=== PATIENT | male | born 1955 | race Caucasian/White ===

== ENCOUNTER 2020-05-17 16:04 | Emergency (ER) | payer MEDICARE ==
[2020-05-17 16:20] VITALS: PULSE 75
[2020-05-17 17:35] LABS: Basophils # (A) 0.1 k/uL (0-0.2); Basophils % (A) 1 %; Eosinophils # (A) 0.2 k/uL (0-0.7); Eosinophils % (A) 2 %; HCT 46.5 % (39.0-53.0); HGB 15.2 gm/dL (13.0-17.5); Lymphocytes % (A) 13 %; MCH 32.7 pg (25.0-35.0); MCHC 32.8 g/dL (31.0-37.0); MCV 99.8 fL (80.0-100.0); Mean Platelet Volume 7.5; Monocytes # (A) 0.6 k/uL (0-1.0); Monocytes % (A) 8 %; Neutrophils # (A) 5.6 k/uL (1.3-7.7); Neutrophils % (A) 73 %; Platelet Count 323 k/uL (150-450); RBC 4.66 m/uL (4.30-5.90); RDW 13.7 % (11.5-15.5); WBC 7.7 k/uL (3.8-10.6)
[2020-05-17 17:44] LABS: ALT 23 U/L (4-49); AST 42 U/L (17-59); African American GFR (CKD) >90 (>60 ml/min/1.73 sqM); Albumin 3.9 g/dL (3.5-5.0); Alkaline Phosphatase 42 U/L (38-126); Amylase 78 U/L (30-110); Anion Gap 8 mmol/L; Blood Urea Nitrogen 11 mg/dL (9-20); Calcium 9.4 mg/dL (8.4-10.2); Carbon Dioxide 24 mmol/L (22-30); Chloride 102 mmol/L (98-107); Glucose 96 mg/dL (74-99); Non-African American GFR(CKD) >90 (>60 ml/min/1.73 sqM); Potassium 3.8 mmol/L (3.5-5.1); Sodium 134 mmol/L (137-145); Total Bilirubin 0.5 mg/dL (0.2-1.3)
--- NOTE | 2020-05-17 18:16 | CT ---
EXAMINATION TYPE: CT abdomen pelvis w con DATE OF EXAM: 05/17/2020 COMPARISON: 06/10/2011 HISTORY: Diarrhea x9 days CT DLP: 1151.1 mGycm Automated exposure control for dose reduction was used. CONTRAST: Performed with IV Contrast, patient injected with 100 mL of Isovue 300. Lung bases are clear of consolidation. There is no pleural effusion. Heart size is normal. There is n o pericardial effusion. Liver spleen pancreas stomach appear normal. There are clips from cholecystec raul. Bile ducts are not dilated. There is no adrenal mass. Kidneys show satisfactory contrast opacification. There is no hydronephrosi s. Ureters are not dilated. There is no inguinal hernia. Bladder is almost empty. There is no evidenc e of a pelvic mass. There are multiple sigmoid diverticula. There is some mild fat stranding posterio r to the proximal sigmoid colon. There are numerous diverticula throughout the colon. The appendix is posterior and appears normal. Small bowel appears normal. There is no evidence of a bowel obstructio n. There is no ascites or free air. Lumbar vertebra have normal alignment. There is narrowing of disc spaces at L3-4 L4-5 with spurring a nd sclerosis. There is no compression fracture. The bony pelvis is intact. IMPRESSION: There is extensive colonic diverticulosis. There is evidence of mild sigmoid diverticulitis. This is a change compared to old exam. No abscess. Spondylotic changes in the lower lumbar spine.
[2020-05-17 18:25] LABS: Appearance,Urine Clear (Clear); Bilirubin,Urine Negative (Negative); Blood,Urine Negative (Negative); Color,Urine Yellow; Glucose,Urine (UA) Negative (Negative); Ketones,Urine Negative (Negative); Leukocyte Esterase,Urine Negative (Negative); Nitrite,Urine Negative (Negative); Protein,Urine Negative (Negative); Urobilinogen,Urine <2.0 mg/dL (<2.0)
[2020-05-17] MEDS ORDERED: AMOXIC-POT CLAV 875MG STARTER PACK 2 TAB BTL PO STA (18:33)
--- NOTE | 2020-05-17 18:34 | ED ---
Abdominal Pain HPI <Evan Leach - Last Filed: 05/17/20 18:37> - General Source: patient Mode of arrival: ambulatory Limitations: no limitations <Lesli Bingham - Last Filed: 05/17/20 19:08> - General Chief Complaint: Abdominal Pain Stated Complaint: diarrhea/poss obstruction Time Seen by Provider: 05/17/20 16:22 - History of Present Illness Initial Comments: 64-year-old male presented for chief complaint evaluation of crampy left lower quadrant abdominal pain ongoing since the day after Father's Day. Patient states the past 2 weeks he has had on-and-off left lower quadrant abdominal pain crampy in nature no severe stabbing pain he states that it has been associated with diarrhea. Patient states he's been tolerating oral intake denies any vomiting states he has had had some nausea. Patient denies fevers. Patient denies any blood in the stools or hematemesis. Patient has no additional complaints denies any chest pain shortness of breath (Lesli Bingham) - Related Data Home Medications Medication Instructions Recorded Confirmed ALPRAZolam [Xanax] 1 mg PO BID PRN 05/17/20 05/17/20 Diphenoxylate HCl/Atropine 1 tab PO QID PRN 05/17/20 05/17/20 [Lomotil 2.5-0.025 mg Tablet] Fenofibrate 160 mg PO HS 05/17/20 05/17/20 Omeprazole 20 mg PO Q48H 05/17/20 05/17/20 Sertraline [Zoloft] 100 mg PO HS 05/17/20 05/17/20 traZODone HCL 50 mg PO HS 05/17/20 05/17/20 Previous Rx's Medication Instructions Recorded Amoxic-Pot Clav 875-125Mg 1 tab PO Q12HR 10 Days #20 tab 05/17/20 [Augmentin 875-125] Allergies Allergy/AdvReac Type Severity Reaction Status Date / Time No Known Allergies Allergy Verified 05/17/20 17:37 Review of Systems ROS Other: All systems not noted in ROS Statement are negative. <Evan Leach - Last Filed: 05/17/20 18:37> ROS Other: All systems not noted in ROS Statement are negative. <Lesli Bingham - Last Filed: 05/17/20 19:08> ROS Statement: Those systems with pertinent positive or pertinent negative responses have been documented in the HPI. Past Medical History Past Medical History: Hyperlipidemia History of Any Multi-Drug Resistant Organisms: None Reported Additional Past Surgical History / Comment(s): RT knee surgery Past Psychological History: No Psychological Hx Reported Smoking Status: Never smoker Past Alcohol Use History: None Reported Past Drug Use History: None Reported <Lesli Bingham - Last Filed: 05/17/20 19:08> General Exam Limitations: no limitations <Lesli Bingham - Last Filed: 05/17/20 19:08> - General Exam Comments Initial Comments: General: The patient is awake and alert, in no distress Eye: Pupils are equal, round and reactive to light, extra-ocular movements are intact. No nystagmus. There is normal conjunctiva bilaterally. No signs of icterus. Ears, nose, mouth and throat: There are moist mucous membranes and no oral lesions. Neck: The neck is supple, there is no tenderness or JVD. Cardiovascular: There is a regular rate and rhythm. No murmur, rub or gallop is appreciated. Respiratory: Lungs are clear to auscultation, respirations are non-labored, breath sounds are equal. No wheezes, stridor, rales, or rhonchi. Gastrointestinal: Soft, non-distended, mild-moder LLQ pain to palpation of the abdomen without masses or organomegaly noted. There is no rebound or guarding present. Musculoskeletal: Normal ROM, no tenderness. Strength 5/5. Sensation intact. Pulses equal bilaterally 2+. Neurological: A&O x 3. CN II-XII intact, There are no obvious motor or sensory deficits. Coordination appears grossly intact. Speech is normal. Skin: Skin is warm and dry and no rashes or lesions are noted. Psychiatric: Cooperative, appropriate mood & affect, normal judgment. (Lesli Bingham) Course <Evan Leach - Last Filed: 05/17/20 18:37> Vital Signs 05/17/20 16:14 Temperature 98.2 F Pulse Rate 75 Respiratory 18 Rate Blood Pressure 132/82 O2 Sat by Pulse 96 Oximetry - Reevaluation(s) Reevaluation #1: 05/17/20 18:37 PA supervision: I proceeded [id number] evaluation the patient. He did present with complaints of lower abdominal pain he does have an exam and findings consistent with diverticulitis. It is a mild case and is amenable to outpatient treatment. After discussion with the patient and his he is agreed to be discharged with attempts at outpatient therapy. Return parameters were dis cussed. (Evan Leach) Medical Decision Making - Lab Data Result diagrams: 05/17/20 17:26 05/17/20 17:26 <Evan Leach - Last Filed: 05/17/20 18:37> - Lab Data Result diagrams: 05/17/20 17:26 05/17/20 17:26 <Lesli Bingham - Last Filed: 05/17/20 19:08> - Medical Decision Making 34-year-old male presenting for left lower quadrant abdominal pain ongoing for the past 2 weeks. Sent from primary care provider to rule out obstruction although patient is passing stool per rectum. CT concerning for extensive diverticulosis with sigmoid diverticulitis. This is consistent physical exa mination. Patient was initiated on Augmentin there is no signs of severe disease or abscess. Patient having oral intake and I felt this time history of for discharge with outpatient GI and primary care follow-up consultations of diverticulitis and diverticular diet were discussed the patient verbalizes understanding his aware of this her temperature parents for increasing or sudden onset of new pain or development of fevers. Patient case discussed with Eliceo Leach who evaluated patient he is agreeable to care plan and discharge. (Lesli Bingham) - Lab Data Lab Results 05/17/20 05/17/20 05/17/20 Range/Units 17:26 17:26 18:21 WBC 7.7 (3.8-10.6) k/uL RBC 4.66 (4.30-5.90) m/uL Hgb 15.2 (13.0-17.5) gm/dL Hct 46.5 (39.0-53.0) % MCV 99.8 (80.0-100.0) fL MCH 32.7 (25.0-35.0) pg MCHC 32.8 (31.0-37.0) g/dL RDW 13.7 (11.5-15.5) % Plt Count 323 (150-450) k/uL Neutrophils % 73 % Lymphocytes % 13 % Monocytes % 8 % Eosinophils % 2 % Basophils % 1 % Neutrophils # 5.6 (1.3-7.7) k/uL Lymphocytes # 1.0 (1.0-4.8) k/uL Monocytes # 0.6 (0-1.0) k/uL Eosinophils # 0.2 (0-0.7) k/uL Basophils # 0.1 (0-0.2) k/uL Sodium 134 L (137-145) mmol/L Potassium 3.8 (3.5-5.1) mmol/L Chloride 102 (98-107) mmol/L Carbon Dioxide 24 (22-30) mmol/L Anion Gap 8 mmol/L BUN 11 (9-20) mg/dL Creatinine 0.77 (0.66-1.25) mg/dL Est GFR (CKD-EPI)AfAm >90 (>60 ml/min/1.73 sqM) Est GFR (CKD-EPI)NonAf >90 (>60 ml/min/1.73 sqM) Glucose 96 (74-99) mg/dL Calcium 9.4 (8.4-10.2) mg/dL Total Bilirubin 0.5 (0.2-1.3) mg/dL AST 42 (17-59) U/L ALT 23 (4-49) U/L Alkaline Phosphatase 42 (38-126) U/L Total Protein 7.0 (6.3-8.2) g/dL Albumin 3.9 (3.5-5.0) g/dL Amylase 78 (30-110) U/L Lipase 131 (23-300) U/L Urine Color Yellow Urine Appearance Clear (Clear) Urine pH 6.0 (5.0-8.0) Ur Specific [place] 1.010 (1.001-1.035) Urine Protein Negative (Negative) Urine Glucose (UA) Negative (Negative) Urine Ketones Negative (Negative) Urine Blood Negative (Negative) Urine Nitrite Negative (Negative) Urine Bilirubin Negative (Negative) Urine Urobilinogen <2.0 (<2.0) mg/dL Ur Leukocyte Esterase Negative (Negative) Disposition <Evan Leach - Last Filed: 05/17/20 18:37> Is patient prescribed a controlled substance at d/c from ED?: No Time of Disposition: 18:34 <Lesli Bingham - Last Filed: 05/17/20 19:08> Clinical Impression: Diverticulitis, Diarrhea, Abdominal cramping Disposition: HOME SELF-CARE Condition: Good Instructions (If sedation given, give patient instructions): Diverticulitis (ED), Diverticulitis Diet (ED) Additional Instructions: Please use medication as discussed. Please follow-up with family doctor in the next 2 days, recommend outpatient GI follow-up for colonoscopy in next month once infection cleared. Please return to emergency room if the symptoms increase or worsen or for any other concerns. Prescriptions: Amoxic-Pot Clav 875-125Mg [Augmentin 875-125] 1 tab PO Q12HR 10 Days #20 tab Referrals: Raudel Vaca III, MD [Primary Care Provider] - 1-2 days Cassandra Felton MD [STAFF PHYSICIAN] - 1-2 days
[2020-05-17 19:10] VITALS: BP 129/76; RESP 17; TEMP 98.3
== END 2020-05-17 19:09 | disposition home or self-care (01) ==
LOC: EC 16:04
DX: K57.32 Diverticulitis of large intestine without perforation or abscess without bleeding (principal); Z79.899 Other long term (current) drug therapy
CPT/HCPCS: 36415; 80053; 82150; 83690; 85025; 81003; 74177; 99284; Q9967

== ENCOUNTER → 2020-08-08 | Day surgery (SDC) | payer MEDICARE ==
[2020-08-03 12:08] VITALS: BMI 29.5
[~2020-08-08] MED LIST: LACTATED RINGERS 1,000 ML IV SCH; LIDOCAINE 1% INJ 10MG/ML (20 ML MDV) ONE; PROPOFOL 10 MG/ML 20 ML VIAL IV ONE
[2020-08-08 09:01] VITALS: TEMP 97.2
--- NOTE | 2020-08-08 09:15 | P.GSHP ---
History of Present Illness H&P Date: 08/08/20 Chief Complaint: Colon cancer screening Patient here today for colonoscopy. Last colonoscopy 10 years or so ago. Previous colonoscopies normal. Complaints of chronic diarrhea says he'll have 3-5 bowel moments per day. No rectal bleeding. No history of polyps. No family history of colon cancer. Past Medical History Past Medical History: GERD/Reflux, Hyperlipidemia Additional Past Medical History / Comment(s): hx of colitis, having frequent dark stools, History of Any Multi-Drug Resistant Organisms: None Reported Past Surgical History: Joint Replacement, Orthopedic Surgery Additional Past Surgical History / Comment(s): RT knee 6 arthroscopic sx, ACL repair, and 3 rt knee replacements Past Anesthesia/Blood Transfusion Reactions: No Reported Reaction Smoking Status: Former smoker - Past Family History Mother Family Medical History: No Reported History Medications and Allergies Home Medications Medication Instructions Recorded Confirmed Type ALPRAZolam [Xanax] 0.5 mg PO BID PRN 05/17/20 08/08/20 History Fenofibrate 160 mg PO HS 05/17/20 08/03/20 History Omeprazole 20 mg PO Q48H 05/17/20 08/03/20 History Sertraline [Zoloft] 100 mg PO HS 05/17/20 08/03/20 History traZODone HCL 50 mg PO HS 05/17/20 08/03/20 History Allergies Allergy/AdvReac Type Severity Reaction Status Date / Time No Known Allergies Allergy Verified 08/03/20 12:01 Surgical - Exam Vital Signs Temp Pulse Resp BP Pulse Ox 97.2 F L 94 17 175/92 97 08/08/20 08:59 08/08/20 08:59 08/08/20 08:59 08/08/20 08:59 08/08/20 08:59 Physical exam: General: Well-developed, well-nourished HEENT: Normocephalic, sclerae nonicteric Abdomen: Nontender, nondistended Extremities: No edema Neuro: Alert and oriented Assessment and Plan (1) Colon cancer screening Narrative/Plan: Will proceed with colonoscopy at this time Current Visit: Yes Status: Acute Code(s): Z12.11 - ENCOUNTER FOR SCREENING FOR MALIGNANT NEOPLASM OF COLON SNOMED Code(s): 739894999
--- NOTE | 2020-08-08 09:31 | P.PCN ---
Date of Procedure: 08/08/20 Procedure(s) Performed: PREOPERATIVE DIAGNOSIS: Colon cancer screening POSTOPERATIVE DIAGNOSIS: Transverse colon polyp, mild left-sided colitis, diverticulosis PROCEDURE: Colonoscopy with snare polypectomy and biopsy ANESTHESIA: MAC SURGEON: Rhett Wellington M.D. SPECIMENS: Random left colon, transverse colon polyp ENDOSCOPIC PROCEDURE: The patient was placed on the endoscopy table in the left decubitus position. The Olympus colonoscope was inserted into the anus and passed under direct visualization to the base of the cecum. The appendiceal orifice was visualized. From that point the scope was slowly withdrawn inspecting all surfaces carefully. There were no neoplastic inflammatory or polypoid lesions throughout the cecum and ascending colon. In the transverse colon a small polyp was seen and removed using the snare with cautery technique. The remainder of the transverse descending sigmoid and rectum are free of any neoplastic or polypoid lesions. The patient did have mild inflammatory changes throughout the left side of the colon. Random biopsies of the left sided colitis were taken. The erythema was spotty and mild in nature, no ulcerations were seen, no bleeding was seen. Patient had extensive diverticulosis throughout the colon. Digital rectal examination was normal. The patient was taken to the recovery room in stable condition per anesthesia guidelines. RECOMMENDATIONS: Await biopsy results. Resume diet
[2020-08-08 09:58] VITALS: BP 143/90; PULSE 66; RESP 16
== END ==
LOC: ORWHC2ENDO 08:34
PROVIDERS: ATTEND Surgery
DX: K51.50 Left sided colitis without complications (principal); K63.5 Polyp of colon; K57.30 Diverticulosis of large intestine without perforation or abscess without bleeding; K21.9 Gastro-esophageal reflux disease without esophagitis; E78.5 Hyperlipidemia, unspecified; Z87.19 Personal history of other diseases of the digestive system; Z96.651 Presence of right artificial knee joint; Z98.890 Other specified postprocedural states; Z87.891 Personal history of nicotine dependence; Z79.899 Other long term (current) drug therapy; Z88.1 Allergy status to other antibiotic agents
CPT/HCPCS: 88305; 45385; J2001; J2704

== ENCOUNTER → 2020-12-15 | Outpatient (CLI) | payer MEDICARE | END | disposition home or self-care (01) | LOC: LABWHC1 16:59 | PROVIDERS: ATTEND Family Medicine | DX: J06.9 Acute upper respiratory infection, unspecified (principal); R05 Cough | CPT/HCPCS: U0003; C9803 ==

== ENCOUNTER → 2021-07-16 | Outpatient (CLI) | payer MEDICARE ==
--- NOTE | 2021-07-16 12:49 | ECHOF ---
Referral Reason:I34.0 Nonrheumatic mitral (valve) insufficiency MEASUREMENTS -------- HEIGHT: 177.8 cm WEIGHT: 90.7 kg BP: IVSd: 1.7 cm (0.6 - 1.1) LVIDd: 3.8 cm (3.9 - 5.3) LVPWd: 1.8 cm (0.6 - 1.1) EDV(Teich): 64 ml IVSs: 2.3 cm LVIDs: 2.5 cm LVPWs: 2.5 cm %IVS Thck: 33 % ESV(Teich): 22 ml EF(Teich): 65 % %FS: 35 % SV(Teich): 41 ml RVIDd: 3.9 cm (< 3.3) IVC: 13.27 mm LALs A4C: 6.2 cm LAAs A4C: 23.9 cm LAESV A-L A4C: 78 ml LAESV MOD A4C: 72 ml LALs A2C: 6.1 cm LAAs A2C: 28.7 cm LAESV A-L A2C: 116 ml LAESV MOD A2C: 109 ml LAESV(A-L): 96 ml LAESV Index (A-L): 45.99 ml/m Ao Diam: 3.5 cm (2.0 - 3.7) LA Diam: 4.6 cm (2.7 - 3.8) AV Cusp: 1.5 cm (1.5 - 2.6) EPSS: 1.0 cm MV E Jaydon: 0.78 m/s MV DecT: 187 ms MV Dec Greer: 4.2 m/s MV A Jaydon: 0.98 m/s MV E/A Ratio: 0.80 MV PHT: 54 ms LVOT Vmax: 0.78 m/s LVOT maxP.40 mmHg AV Vmax: 1.91 m/s AV maxP.66 mmHg AV Vmax: 2.14 m/s AV Vmean: 1.59 m/s AV maxP.43 mmHg AV meanP.92 mmHg AV Env.Ti: 289 ms AV VTI: 45.9 cm TR Vmax: 2.00 m/s TR maxP.97 mmHg RAP: 5.00 mmHg RVSP: 20.97 mmHg MV EF SLOPE: 75.93 mm/s (70 - 150) MV EXCURSION: 20.28 mm (> 18.000) FINDINGS -------- Sinus rhythm. This was a technically adequate study. The left ventricular size is normal. There is moderate concentric left ventricular hypertrophy. O verall left ventricular systolic function is normal with, an EF between 55 - 60 %. The right ventricle is mild to moderately enlarged. LA is severely dilated >40 ml/m2 The right atrial size is normal. Interatrial and interventricular septum intact. There is moderate aortic valve sclerosis. There is no evidence of aortic regurgitation. There is mild aortic stenosis present. Peak/mean gradient across the Aortic Valve is 18.43mmHg / 10.92mmHg. [id number]-zy-ndjixk mitral regurgitation is present. Mild tricuspid regurgitation present. There is no evidence of pulmonary hypertension. The right v entricular systolic pressure, as measured by Doppler, is 20.97mmHg. There is no pulmonic regurgitation present. The aortic root size is normal. Normal inferior vena cava with normal inspiratory collapse consistent with estimated right atrial pre ssure of 5 mmHg. There is no pericardial effusion. CONCLUSIONS -------- 1. The left ventricular size is normal. 2. There is moderate concentric left ventricular hypertrophy. 3. Overall left ventricular systolic function is normal with, an EF between 55 - 60 %. 4. The right ventricle is mild to moderately enlarged. 5. LA is severely dilated >40 ml/m2 6. There is moderate aortic valve sclerosis. 7. There is mild aortic stenosis present. 8. Peak/mean gradient across the Aortic Valve is 18.43mmHg / 10.92mmHg. 9. Ebjcefbu-[id number]-xitdrs mitral regurgitation is present. 10. Mild tricuspid regurgitation present. PUMPMAN: Ilana Chávez RDCS
== END | disposition home or self-care (01) ==
LOC: RADECHMAIN 06:45
PROVIDERS: ATTEND Family Medicine
DX: I08.3 Combined rheumatic disorders of mitral, aortic and tricuspid valves (principal)
CPT/HCPCS: 93306

== ENCOUNTER 2021-10-17 13:40 | Emergency (ER) | payer MEDICARE ==
[2021-10-17] MEDS ORDERED: SODIUM CHLORIDE 0.9% 1,000 ML IV STA (14:42)
[2021-10-17 14:46] VITALS: RESP 20
[2021-10-17 15:00] LABS: Basophils # (A) 0.1 k/uL (0-0.2); Basophils % (A) 1 %; Eosinophils # (A) 0.2 k/uL (0-0.7); Eosinophils % (A) 3 %; HCT 43.4 % (39.0-53.0); HGB 15.2 gm/dL (13.0-17.5); Lymphocytes % (A) 14 %; MCH 34.7 pg (25.0-35.0); MCHC 35.1 g/dL (31.0-37.0); MCV 98.8 fL (80.0-100.0); Mean Platelet Volume 7.5; Monocytes # (A) 0.8 k/uL (0-1.0); Monocytes % (A) 11 %; Neutrophils # (A) 4.9 k/uL (1.3-7.7); Neutrophils % (A) 69 %; Platelet Count 300 k/uL (150-450); RBC 4.39 m/uL (4.30-5.90); RDW 13.4 % (11.5-15.5); WBC 7.2 k/uL (3.8-10.6)
[2021-10-17 15:07] LABS: ALT 21 U/L (4-49); AST 63 U/L (17-59); African American GFR (CKD) >90 (>60 ml/min/1.73 sqM); Albumin 4.2 g/dL (3.5-5.0); Alkaline Phosphatase 48 U/L (38-126); Amylase 55 U/L (30-110); Anion Gap 12 mmol/L; Blood Urea Nitrogen 11 mg/dL (9-20); Calcium 9.6 mg/dL (8.4-10.2); Carbon Dioxide 22 mmol/L (22-30); Chloride 100 mmol/L (98-107); Glucose 116 mg/dL (74-99); Lipase 74 U/L (23-300); Non-African American GFR(CKD) 83 (>60 ml/min/1.73 sqM); Potassium 3.6 mmol/L (3.5-5.1); Sodium 134 mmol/L (137-145); Total Bilirubin 0.7 mg/dL (0.2-1.3); Total Protein 7.3 g/dL (6.3-8.2)
--- NOTE | 2021-10-17 16:54 | ED ---
GI Bleed HPI - General Chief complaint: GI Bleed Stated complaint: GI Bleed, Weakness Time Seen by Provider: 10/17/21 14:34 Source: patient, RN notes reviewed Mode of arrival: wheelchair Limitations: no limitations - History of Present Illness Initial comments: 65 show male presents emergency Department with chief complaint of possible blood in stool. Patient states he started having pain on in his left lower quadrant area. Patient was seen at urgent care had outpatient CT shows evidence of diverticulitis. Patient states the pain has been getting better but was concerningsmall amount blood. Patient called for follow-up neck told him th at his GFR was 55 to have repeat lab work. Patient presents emergency Department today. Denies any reba bloody stools he states he just saw some mixed stool. Patient denies any fevers, chills currently patient states having was seemed to be getting better. - Related Data Home Medications Medication Instructions Recorded Confirmed ALPRAZolam [Xanax] 0.5 - 1 mg PO BID PRN 05/17/20 10/17/21 Fenofibrate 160 mg PO HS 05/17/20 10/17/21 Omeprazole 20 mg PO DAILY 05/17/20 10/17/21 Sertraline [Zoloft] 100 mg PO HS 05/17/20 10/17/21 traZODone HCL 50 mg PO HS 05/17/20 10/17/21 Cholestyramine (with Sugar) 4 gm PO DAILY 10/17/21 10/17/21 [Cholestyramine Packet] Ciprofloxacin HCl [Cipro] 500 mg PO Q12HR 10/17/21 10/17/21 metroNIDAZOLE [Flagyl] 500 mg PO Q8H 10/17/21 10/17/21 Allergies Allergy/AdvReac Type Severity Reaction Status Date / Time No Known Allergies Allergy Verified 10/17/21 15:39 Review of Systems ROS Statement: Those systems with pertinent positive or pertinent negative responses have been documented in the HPI. ROS Other: All systems not noted in ROS Statement are negative. Past Medical History Past Medical History: GERD/Reflux, Hyperlipidemia Additional Past Medical History / Comment(s): hx of colitis, having frequent dark stools, History of Any Multi-Drug Resistant Organisms: None Reported Past Surgical History: Joint Replacement, Orthopedic Surgery Additional Past Surgical History / Comment(s): RT knee 6 arthroscopic sx, ACL repair, and 3 rt knee replacements Past Anesthesia/Blood Transfusion Reactions: No Reported Reaction Past Psychological History: Anxiety Smoking Status: Former smoker - Past Family History Mother Family Medical History: No Reported History General Exam Limitations: no limitations General appearance: alert, in no apparent distress Head exam: Present: atraumatic, normocephalic, normal inspection Eye exam: Present: normal appearance, PERRL, EOMI. Absent: scleral icterus, conjunctival injection, periorbital swelling ENT exam: Present: normal exam, normal oropharynx, mucous membranes moist Neck exam: Present: normal inspection, full ROM. Absent: tenderness, meningismus, lymphadenopathy Respiratory exam: Present: normal lung sounds bilaterally. Absent: respiratory distress, wheezes, rales, rhonchi, stridor Cardiovascular Exam: Present: regular rate, normal rhythm, normal heart sounds. Absent: systolic murmur, diastolic murmur, rubs, gallop, clicks GI/Abdominal exam: Present: soft, normal bowel sounds. Absent: distended, tenderness, guarding, rebound, rigid Course Vital Signs 10/17/21 10/17/21 14:24 14:43 Temperature 97.4 F L Pulse Rate 82 74 Respiratory 19 20 Rate Blood Pressure 134/87 149/94 O2 Sat by Pulse 97 96 Oximetry Medical Decision Making - Medical Decision Making I did re-view outpatient CT and discussed labs with urgent care patient had mildly decreased GFR which is normal today. CT shows evidence of mild diverticulitis with no abscess perforation patient's pain has improved almost resolved prior to coming. Patient's hemoglobin is stable. Patient we discharged stable condition return parameters Discussed. - Lab Data Result diagrams: 10/17/21 14:47 10/17/21 14:47 Lab Results 10/17/21 10/17/21 10/17/21 Range/Units 14:47 14:47 14:47 WBC 7.2 (3.8-10.6) k/uL RBC 4.39 (4.30-5.90) m/uL Hgb 15.2 (13.0-17.5) gm/dL Hct 43.4 (39.0-53.0) % MCV 98.8 (80.0-100.0) fL MCH 34.7 (25.0-35.0) pg MCHC 35.1 (31.0-37.0) g/dL RDW 13.4 (11.5-15.5) % Plt Count 300 (150-450) k/uL MPV 7.5 Neutrophils % 69 % Lymphocytes % 14 % Monocytes % 11 % Eosinophils % 3 % Basophils % 1 % Neutrophils # 4.9 (1.3-7.7) k/uL Lymphocytes # 1.0 (1.0-4.8) k/uL Monocytes # 0.8 (0-1.0) k/uL Eosinophils # 0.2 (0-0.7) k/uL Basophils # 0.1 (0-0.2) k/uL Sodium 134 L (137-145) mmol/L Potassium 3.6 (3.5-5.1) mmol/L Chloride 100 (98-107) mmol/L Carbon Dioxide 22 (22-30) mmol/L Anion Gap 12 mmol/L BUN 11 (9-20) mg/dL Creatinine 0.96 (0.66-1.25) mg/dL Est GFR (CKD-EPI)AfAm >90 (>60 ml/min/1.73 sqM) Est GFR (CKD-EPI)NonAf 83 (>60 ml/min/1.73 sqM) Glucose 116 H (74-99) mg/dL Plasma Lactic Acid Elijah 1.1 (0.7-2.0) mmol/L Calcium 9.6 (8.4-10.2) mg/dL Total Bilirubin 0.7 (0.2-1.3) mg/dL AST 63 H (17-59) U/L ALT 21 (4-49) U/L Alkaline Phosphatase 48 (38-126) U/L Total Protein 7.3 (6.3-8.2) g/dL Albumin 4.2 (3.5-5.0) g/dL Amylase 55 (30-110) U/L Lipase 74 (23-300) U/L Disposition Clinical Impression: Diverticulitis Disposition: HOME SELF-CARE Condition: Stable Instructions (If sedation given, give patient instructions): Diverticulitis Diet (ED), Diverticulitis (ED) Additional Instructions: Please return to the Emergency Department if symptoms worsen or any other concerns. Is patient prescribed a controlled substance at d/c from ED?: No Referrals: Raudel Vaca III, MD [Primary Care Provider] - 1-2 days Time of Disposition: 16:54
[2021-10-17 17:11] LABS: Amorphous Sediment,Urine Occasional /hpf; Appearance,Urine Cloudy (Clear); Bacteria,Urine Rare /hpf; Bilirubin,Urine Negative (Negative); Blood,Urine Negative (Negative); Color,Urine Yellow; Glucose,Urine (UA) Negative (Negative); Hyaline Casts,Urine 5 /lpf (0-2); Ketones,Urine Negative (Negative); Leukocyte Esterase,Urine Negative (Negative); Mucus,Urine Moderate /hpf; Nitrite,Urine Negative (Negative); Protein,Urine Trace (Negative); RBC,Urine 1 /hpf (0-5); Squamous Epithelial Cell,Urine <1 /hpf (0-4); Urobilinogen,Urine <2.0 mg/dL (<2.0); WBC,Urine 2 /hpf (0-5)
[2021-10-17 17:37] VITALS: BP 141/84; PULSE 60; TEMP 98
== END 2021-10-17 17:37 | disposition home or self-care (01) ==
LOC: EC 13:40
DX: K57.92 Diverticulitis of intestine, part unspecified, without perforation or abscess without bleeding (principal); K21.9 Gastro-esophageal reflux disease without esophagitis; E78.5 Hyperlipidemia, unspecified; F41.9 Anxiety disorder, unspecified; Z87.891 Personal history of nicotine dependence; Z79.899 Other long term (current) drug therapy
CPT/HCPCS: 36415; 80053; 81001; 82150; 83605; 83690; 85025; 96360; 96361; 99284

== ENCOUNTER → 2022-01-19 | Outpatient (CLI) | payer MEDICARE ==
[2022-01-19 16:45] LABS: HCT 40.6 % (39.6-50.0); HGB 13.6 g/dL (13.0-17.0); MCH 32.9 pg (27.0-32.0); MCHC 33.5 g/dL (32.0-37.0); MCV 98.1 fL (80.0-97.0); Mean Platelet Volume 9.5 fL (9.5-12.2); NRBC Per 100 WBC 0 /100 WBCS (0.0-0.0); Platelet Count 248 X 10*3/uL (140-440); RBC 4.14 X 10*6/uL (4.40-5.60); RDW 13.7 % (11.5-14.5); WBC 4.55 X 10*3/uL (4.50-10.00)
[2022-01-19 17:00] LABS: African American GFR (CKD) 90.5 (60.0-200.0); Anion Gap 14.5 mmol/L (10.00-18.00); Blood Urea Nitrogen 11.8 mg/dL (9.0-27.0); Carbon Dioxide 21.1 mmol/L (20.0-27.5); Non-African American GFR(CKD) 78.1 (60.0-200.0)
== END | disposition home or self-care (01) ==
LOC: LABPAT 09:37
PROVIDERS: ATTEND Internal Medicine Interventional Cardiology
DX: Z01.812 Encounter for preprocedural laboratory examination (principal); I34.0 Nonrheumatic mitral (valve) insufficiency; R94.39 Abnormal result of other cardiovascular function study
CPT/HCPCS: 80051; 82565; 84520; 85027

== ENCOUNTER → 2022-01-22 | Day surgery (SDC) | payer MEDICARE ==
[2022-01-21 09:54] VITALS: BMI 28.5
[~2022-01-22] MED LIST changes: +ALPRAZolam 0.25 MG TAB PO PRN; +ALPRAZolam 0.5 MG TAB PO PRN; +ASPIRIN 325 MG TAB PO STA; +ASPIRIN 81 MG PO SCH; +ATORVASTATIN 80 MG TAB PO STA; +BENZOCAINE SPRAY 1 CAN TOPICAL ONE; +FENOFIBRATE 160 MG TAB PO SCH; +HEPARIN SODIUM 1,000 UN/ML (10ML VL) IV ONE; +HEPARIN SODIUM 1,000 UN/ML (10ML VL) ONE; +HEPARIN SODIUM,PORCINE 10,000 UNIT in SODIUM CHLORIDE 0.9% 1,000 ML IRRIGATION PRN; +HEPARIN SODIUM,PORCINE 2,500 UNIT in SODIUM CHLORIDE 0.9% 250 ML IRRIGATION PRN; +IOPAMIDOL-370 125ML BTL INJ ONE; -LACTATED RINGERS 1,000 ML IV SCH; +LIDOCAINE 1% INJ 10MG/ML (20 ML MDV) SQ ONE; +MIDAZOLAM 2 MG/2 ML VIAL IV ONE; +NITROGLYCERIN SL TABS 0.4 MG TAB SUBLINGUAL PRN; +PANTOPRAZOLE 40 MG TABLET PO SCH; -PROPOFOL 10 MG/ML 20 ML VIAL IV ONE; +RX INFO: IV CONTRAST WAS GIVEN 1 EACH MISC MISCELLANE PRN; +SERTRALINE 100 MG TAB PO SCH; +SODIUM CHLORIDE 0.9% 1,000 ML IV ONE; +SODIUM CHLORIDE 0.9% 1,000 ML IV SCH; +SODIUM CHLORIDE 0.9% 1,000 ML in EMPTY BAG 1 BAG IV SCH; +VALSARTAN 160 MG TAB PO SCH; +VERAPAMIL 2.5 MG/ML 2 ML AMP ONE; +VERAPAMIL SYRINGE (5 MG/10 ML) INTRAARTER ONE; +fentaNYL (PF) 50 MCG/ML 2 ML AMP IV ONE; +fentaNYL (PF) 50 MCG/ML 2 ML AMP ONE; +traZODone HCL 50 MG TAB PO SCH
[2022-01-22 07:13] VITALS: TEMP 98.4
[2022-01-22 07:34] VITALS: RESP 18
--- NOTE | 2022-01-22 07:44 | P.PCN ---
Date of Procedure: 01/22/22 Description of Procedure: Indication: Mitral regurgitation Procedure Description: After explaining the procedure to the patient, it's risk and complications, blood pressure, heart rate and O2 saturation were monitored. The throat was sprayed with Cetacaine. Patient received 3 mg intravenous Versed, 50 mcg intravenous fentanyl. The probe was introduced into the esophagus without difficulty. Images were obtained. Following that, the probe was removed. There was no immediate complication. Findings: Left atrial size is mildly dilated, left atrial appendage is normal. Left ventricle size and systolic function are normal. The aortic valve revealed fibrocalcific changes of the aortic cusps with preserved opening. Mitral valve revealed mild thickening of the mitral valve leaflets. Tricuspid valve is normal. Descending thoracic aorta appears to be normal. Contrast bubble study revealed no shunting across the intra-atrial septum. No pericardial effusion was noted. Doppler: Pulse wave and color Doppler flow obtain revealed moderate mitral regurgitation with mild tricuspid regurgitation there was no shunting across the intra-atrial septum Conclusion: 1. Mildly dilated left atrium 2. Normal size and systolic function 3. Moderate mitral regurgitation with mild thickening of the mitral valve leaflets 4. Mild tricuspid regurgitation 5. Aortic sclerosis with no evidence of stenosis.
--- NOTE | 2022-01-22 08:31 | P.CARDCATH ---
Date of Procedure: 01/22/22 Description of Procedure: Cardiac Catheterization: The patient is a 66-year-old male with a history of hyperlipidemia who recently was found to have progression of his mitral regurgitation with a reversible defect on the lateral wall. Recommendations were made regarding cardiac catheterization, the risks and the complications were discussed with the patient who is in full understanding and agreement. Procedure Description: Patient was brought to label folder in fasting semi-sedated state after receiving F entanyl and Benadryl achieiving moderate conscious sedated state. Using Xylocaine Anesthesia and Seldinger technique, a 6-Panamanian sheath was introduced in the right radial artery . Subsequently, selective coronary angiography performed using a 5-Panamanian feet 3.5 bend Meagan catheter. Multiple views of the coronary artery including hemiaxial views were obtained. The 5-Panamanian Pigtail catheter was used to cross the aortic valve and left ventriculogram in the ALLEN view was performed and LVEDP was calculated. Following that, catheter and sheath were removed. Hemostasis was obtained with deployment of TR band . There was no immediate complication. Patient was returned to room in stable condition. Of note, the patient received a total of 4500 units of intravenous heparin as well as intra-arterial verapamil. There was no immediate complications. Findings: There is significant calcification of the mitral annulus Left main: This is a large size vessel, bifurcating into LAD and left circumflex, left main has no high-grade stenosis. LAD: This is a large size vessel, giving rise to large proximal diagonal branch, the LAD tapers down in the distal third, the LAD and the diagonal branch have no high-grade stenosis. Left circumflex: This is a nondominant vessel giving rise to one large obtuse marginal branch. The obtuse marginal branch has 30% plaque with no high-grade stenosis RCA: This is a large dominant vessel, bifurcating into PDA and PLV. The PLV reaches to the apical lateral wall. The RCA in the mid segment has 10-20% stenosis with no high-grade. [Left] Ventriculogram: Left ventricle size and systolic function are normal, ejection fraction 60% with 2+ mitral regurgitation Hemodynamics: There was no gradient across the aortic valve, LVEDP 10-12 mmHg Conclusion: 1. Mitral annulus calcification 2. Mild disease in the RCA and left circumflex 3. Right dominance 4. Normal size and systolic function with 2+ mitral regurgitation Recommendations: I have recommended to continue medical therapy with the aggressive coronary risks modifications. The findings and recommendations were discussed with the patient and his family. They are in agreement and understanding. Duration of sedation is 16 minutes.
[2022-01-22 11:43] VITALS: BP 156/90; PULSE 66
== END | disposition home or self-care (01) ==
LOC: CATHCVL 06:46
PROVIDERS: ATTEND Internal Medicine Interventional Cardiology
DX: I08.3 Combined rheumatic disorders of mitral, aortic and tricuspid valves (principal); E78.2 Mixed hyperlipidemia; M19.90 Unspecified osteoarthritis, unspecified site; R94.39 Abnormal result of other cardiovascular function study; Z90.49 Acquired absence of other specified parts of digestive tract; E78.00 Pure hypercholesterolemia, unspecified; Z96.659 Presence of unspecified artificial knee joint; Z82.49 Family history of ischemic heart disease and other diseases of the circulatory system
CPT/HCPCS: 93312; 93320; 93325; 93458; C1894; C1769; J2250; J2001; J3010; J1644; Q9967

== ENCOUNTER → 2022-03-25 | Outpatient (CLI) | payer MEDICARE ==
[2022-03-25 10:48] LABS: ALT 8 U/L (10-49); AST 21 U/L (14-35); Chol/HDL Ratio 4.95 Ratio; LDL Cholesterol,Calculated 127.6 mg/dL (0.0-131.0)
== END | disposition home or self-care (01) ==
LOC: LABWHC1 07:32
PROVIDERS: ATTEND Internal Medicine Interventional Cardiology
DX: E78.2 Mixed hyperlipidemia (principal)
CPT/HCPCS: 36415; 80061; 84450; 84460

== ENCOUNTER → 2023-10-01 | Outpatient (CLI) | payer MEDICARE ==
[2023-10-01 16:23] LABS: ALT 33 U/L (10-49); AST 38 U/L (14-35); Chol/HDL Ratio 2.25 Ratio; LDL Cholesterol,Calculated 84.1 mg/dL (0.0-131.0)
== END | disposition home or self-care (01) ==
LOC: LABWHC1 08:14
PROVIDERS: ATTEND Nurse Practitioner Adult Health
DX: E78.2 Mixed hyperlipidemia (principal)
CPT/HCPCS: 36415; 80061; 84450; 84460

== ENCOUNTER → 2023-12-15 | Outpatient (CLI) | payer MEDICARE ==
--- NOTE | 2023-12-15 08:08 | US ---
EXAMINATION TYPE: US liver DATE OF EXAM: 12/15/2023 COMPARISON: NONE CLINICAL INDICATION: Male, 68 years old with history of R74.01 ELEVATED LEVELS OF LIVER TRANSAMINASE; elevated liver enzymes TECHNIQUE: Multiple sonographic images of the right upper quadrant are obtained. FINDINGS: EXAM MEASUREMENTS: Liver Length: 13.4 cm Gallbladder Wall: Surgically absent CBD: .8 cm Right Kidney: 10.3 x 5.6 x 5.1 cm NURSE FIRST AID NOTES: Pancreas: Obscured by bowel gas Liver: Increased attenuation Gallbladder: Surgically absent Evidence for sonographic Meza's sign: No CBD: upper limits Right Kidney: No hydronephrosis or masses seen IMPRESSION: Hepatic steatosis.
== END | disposition home or self-care (01) ==
LOC: RADUSWWP 07:39
PROVIDERS: ATTEND Internal Medicine
DX: R74.01 Elevation of levels of liver transaminase levels (principal); K76.0 Fatty (change of) liver, not elsewhere classified
CPT/HCPCS: 76705

== ENCOUNTER 2023-12-19 17:24 | Emergency (ER) | payer MEDICARE ==
--- NOTE | 2023-12-19 17:43 | ED ---
Weakness HPI - General Source: patient, family, RN notes reviewed Mode of arrival: ambulatory Limitations: no limitations - History of Present Illness MD Complaint: generalized weakness <Oksana Son - Last Filed: 12/19/23 17:43> <Severiano Tsang - Last Filed: 12/19/23 22:36> <Niko Hays - Last Filed: 12/30/23 07:42> - General Chief complaint: Weakness Stated complaint: AMS/Fall Time Seen by Provider: 12/19/23 17:41 - History of Present Illness Initial comments: This is a 68-year-old male who presents to the emergency department for generalized weakness and frequent falls over the last week. Patient denies any chest pain, shortness of breath, nausea, or vomiting. His son is privately requesting his alcohol level be tested. Patient admits to occasional alcohol use. (Oksana Son) - Related Data Home Medications Medication Instructions Recorded Confirmed ALPRAZolam [Xanax] 0.5 - 1 mg PO BID PRN 05/17/20 01/22/22 Fenofibrate 160 mg PO HS 05/17/20 01/22/22 Omeprazole 20 mg PO DAILY 05/17/20 01/22/22 Sertraline [Zoloft] 100 mg PO HS 05/17/20 01/22/22 traZODone HCL 50 mg PO HS 05/17/20 01/22/22 Valsartan 160 mg PO DAILY 01/21/22 01/22/22 Aspirin 81 mg PO DAILY 01/22/22 01/22/22 Previous Rx's Medication Instructions Recorded diazePAM [Valium] 5 mg PO TID PRN 3 Days #9 tab 12/20/23 Allergies Allergy/AdvReac Type Severity Reaction Status Date / Time bacitracin Allergy Swelling Verified 12/19/23 17:36 [From Neosporin ([id number])] neomycin Allergy Swelling Verified 12/19/23 17:36 [From Neosporin ([id number])] polymyxin B Allergy Swelling Verified 12/19/23 17:36 [From Neosporin ([id number])] Review of Systems ROS Other: All systems not noted in ROS Statement are negative. <Oksana Son - Last Filed: 12/19/23 17:43> ROS Other: All systems not noted in ROS Statement are negative. <KelsearamonlinhAkilellis Tripathi - Last Filed: 12/19/23 22:36> ROS Other: All systems not noted in ROS Statement are negative. <Niko Hays - Last Filed: 12/30/23 07:42> ROS Statement: Those systems with pertinent positive or pertinent negative responses have been documented in the HPI. Past Medical History Past Medical History: GERD/Reflux, Hyperlipidemia Additional Past Medical History / Comment(s): hx of colitis, having frequent dark stools, History of Any Multi-Drug Resistant Organisms: None Reported Past Surgical History: Joint Replacement, Orthopedic Surgery Additional Past Surgical History / Comment(s): RT knee 6 arthroscopic sx, ACL repair, and 3 rt knee replacements Past Anesthesia/Blood Transfusion Reactions: No Reported Reaction Past Psychological History: Anxiety Smoking Status: Former smoker Past Alcohol Use History: Occasional Past Drug Use History: None Reported - Past Family History Mother Family Medical History: No Reported History <Oksana Son - Last Filed: 12/19/23 17:43> General Exam Limitations: no limitations <Oksana Son - Last Filed: 12/19/23 17:43> Limitations: no limitations General appearance: alert, in no apparent distress, appears intoxicated Head exam: Present: atraumatic, normocephalic Eye exam: Present: normal appearance. Absent: scleral icterus, conjunctival injection ENT exam: Present: mucous membranes dry Neck exam: Present: normal inspection Respiratory exam: Present: normal lung sounds bilaterally. Absent: respiratory distress, wheezes, rales, rhonchi, stridor Cardiovascular Exam: Present: regular rate, normal rhythm, normal heart sounds. Absent: systolic murmur, diastolic murmur, rubs, gallop GI/Abdominal exam: Present: soft. Absent: distended, tenderness, guarding, rebound, rigid, mass Extremities exam: Present: normal inspection, normal capillary refill. Absent: pedal edema, calf tenderness Back exam: Present: normal inspection. Absent: CVA tenderness (R), CVA tenderness (L) Neurological exam: Present: alert. Absent: motor sensory deficit Skin exam: Present: warm, dry, intact, normal color. Absent: rash <Niko Hays - Last Filed: 12/30/23 07:42> - General Exam Comments Initial Comments: Visual Physical Exam Vital signs reviewed General: Well-appearing, nontoxic, no acute distress. Head: Normocephalic, atraumatic Eyes: PERRLA, EOMI ENT: Airway patent Chest: Nonlabored breathing Skin: No visual rash, normal skin tone Neuro: Alert and oriented 3 Musculoskeletal: No gross abnormalities (Oksana Son) Course Vital Signs 12/19/23 12/19/23 12/20/23 17:33 22:07 00:50 Temperature 97.5 F L 97.8 F Pulse Rate 56 L 57 L 64 Respiratory 18 16 18 Rate Blood Pressure 98/71 129/81 121/92 O2 Sat by Pulse 96 95 96 Oximetry EKG Findings - EKG Comments: EKG Findings:: EKG is A-fib 103 QRS 104 QTc 438 - EKG Results: EKG: interpreted by ERMD <Severiano Tsang - Last Filed: 12/19/23 22:36> Medical Decision Making <Oksana Son - Last Filed: 12/19/23 17:43> - Lab Data Result diagrams: 12/19/23 18:23 12/19/23 18:23 <Severiano Tsang - Last Filed: 12/19/23 22:36> - Lab Data Result diagrams: 12/19/23 18:23 12/19/23 18:23 <Niko Hays - Last Filed: 12/30/23 07:42> - Medical Decision Making I performed the QuickNote portion of this chart. Signed Oksana Son PA-C. (Oksana Son) Patient is 68-year-old man presenting after he had difficulty in ambulating. The workup here does reveal patient to be intoxicated consistent with exam. Patient was feeling better following hydration and wanted to go home. Recommended alcohol cessation and close follow-up. The patient had chest x-ray that I interpreted as negative for acute infiltrate, congestive heart failure, pneumothorax Was pt. sent in by a medical professional or institution ([facility], [employer], urgent care, hospital, or usp...) When possible be specific @ -[No] Did you speak to anyone other than the patient for history (EMS, parent, family, police, friend...)? What history was obtained from this source @ -[The patient's son did give some history Did you review nursing and triage notes (agree or disagree)? Why? @ -[I reviewed and agree with nursing and triage notes] Were old charts reviewed (outside hosp., previous admission, EMS record, old EKG, old radiological studies, urgent care reports/EKG's, usp records)? Report findings @ -[No old charts were reviewed] Differential Diagnosis (chest pain, altered mental status, abdominal pain women, abdominal pain men, vaginal bleeding, weakness, fever, dyspnea, syncope, headache, dizziness, GI bleed, back pain, seizure, CVA, palpatations, mental health, musculoskeletal)? @ -[Differential Weakness: Hypoglycemia, shock, sepsis, hyponatremia, anemia, infection, AR, ETOH, adverse medicine reaction, overdose, stroke, this is not meant to be an all-inclusive list. EKG interpreted by me (3pts min.). @ -[I interpreted as above X-rays interpreted by me (1pt min.). @ -[I interpreted as above CT interpreted by me (1pt min.). @ -[None done] U/S interpreted by me (1pt. min.). @ -[None done] What testing was considered but not performed or refused? (CT, X-rays, U/S, labs)? Why? @ -[None] What meds were considered but not given or refused? Why? @ -[None] Did you discuss the management of the patient with other professionals (professionals i.e. , PA, [employer], lab, RT, psych nurse, social work lecturer, welding engineer, teacher, chemistry technical officer, pillowcase cutter)? Give summary @ -[No] Was smoking cessation discussed for >3mins.? @ -[No] Was critical care preformed (if so, how long)? @ -[No] Were there social determinants of health that impacted care today? How? (Homelessness, low income, unemployed, alcoholism, drug addiction, transportation, low edu. Level, literacy, decrease access to med. care, skilled nursing, rehab)? @ -[No] Was there de-escalation of care discussed even if they declined (Discuss DNR or withdrawal of care, Hospice)? DNR status @ -[No] What co-morbidities impacted this encounter? (DM, HTN, Smoking, COPD, CAD, Cancer, CVA, ARF, Chemo, Hep., AIDS, mental health diagnosis, sleep apnea, morbid obesity)? @ -[None] Was patient admitted / discharged? Hospital course, mention meds given and route, prescriptions, significant lab abnormalities, going to OR and other pertinent info. @ -[See above Undiagnosed new problem with uncertain prognosis? @ -[No] Drug Therapy requiring intensive monitoring for toxicity (Heparin, Nitro, Insulin, Cardizem)? @ -[No] Were any procedures done? @ -[No] Diagnosis/symptom? @ -[Acute generalized weakness Acute alcohol intoxication Acute, or Chronic, or Acute on Chronic? @ -[Acute Uncomplicated (without systemic symptoms) or Complicated (systemic symptoms)? @ -[Uncomplicated Side effects of treatment? @ -[No] Exacerbation, Progression, or Severe Exacerbation? @ -[No] Poses a threat to life or bodily function? How? (Chest pain, USA, AR, pneumonia, PE, COPD, DKA, ARF, appy, cholecystitis, CVA, Diverticulitis, Homicidal, Suicidal, threat to staff... and all critical care pts) @ -[No] (Niko Hays) - Lab Data Lab Results 12/19/23 12/19/23 12/19/23 Range/Units 18:23 18:23 18:23 WBC 5.9 (3.8-10.6) k/uL RBC 4.34 (4.30-5.90) m/uL Hgb 15.5 (13.0-17.5) gm/dL Hct 45.8 (39.0-53.0) % MCV 105.5 H (80.0-100.0) fL MCH 35.7 H (25.0-35.0) pg MCHC 33.8 (31.0-37.0) g/dL RDW 13.4 (11.5-15.5) % Plt Count 180 (150-450) k/uL MPV 7.8 Neutrophils % 58 % Lymphocytes % 29 % Monocytes % 8 % Eosinophils % 2 % Basophils % 1 % Neutrophils # 3.4 (1.3-7.7) k/uL Lymphocytes # 1.7 (1.0-4.8) k/uL Monocytes # 0.5 (0-1.0) k/uL Eosinophils # 0.1 (0-0.7) k/uL Basophils # 0.0 (0-0.2) k/uL Macrocytosis Slight PT 13.3 H (10.0-12.5) sec INR 1.3 H (<1.2) APTT 28.3 (22.0-30.0) sec Sodium (137-145) mmol/L Potassium (3.5-5.1) mmol/L Chloride (98-107) mmol/L Carbon Dioxide (22-30) mmol/L Anion Gap mmol/L BUN (9-20) mg/dL Creatinine (0.66-1.25) mg/dL Est GFR (CKD-EPI)AfAm (>60 ml/min/1.73 sqM) Est GFR (CKD-EPI)NonAf (>60 ml/min/1.73 sqM) Glucose (74-99) mg/dL Lactic Ac Sepsis Rflx Plasma Lactic Acid Elijah (0.7-2.0) mmol/L Calcium (8.4-10.2) mg/dL Magnesium (1.6-2.3) mg/dL Total Bilirubin (0.2-1.3) mg/dL AST (17-59) U/L ALT (4-49) U/L Alkaline Phosphatase (38-126) U/L Troponin I (0.000-0.034) ng/mL Total Protein (6.3-8.2) g/dL Albumin (3.5-5.0) g/dL Urine Color Yellow Urine Appearance Clear (Clear) Urine pH 5.0 (5.0-8.0) Ur Specific [place] 1.018 (1.001-1.035) Urine Protein Negative (Negative) Urine Glucose (UA) Negative (Negative) Urine Ketones Negative (Negative) Urine Blood Negative (Negative) Urine Nitrite Negative (Negative) Urine Bilirubin Negative (Negative) Urine Urobilinogen <2.0 (<2.0) mg/dL Ur Leukocyte Esterase Negative (Negative) Serum Alcohol mg/dL 12/19/23 12/19/23 12/19/23 Range/Units 18:23 18:23 18:23 WBC (3.8-10.6) k/uL RBC (4.30-5.90) m/uL Hgb (13.0-17.5) gm/dL Hct (39.0-53.0) % MCV (80.0-100.0) fL MCH (25.0-35.0) pg MCHC (31.0-37.0) g/dL RDW (11.5-15.5) % Plt Count (150-450) k/uL MPV Neutrophils % % Lymphocytes % % Monocytes % % Eosinophils % % Basophils % % Neutrophils # (1.3-7.7) k/uL Lymphocytes # (1.0-4.8) k/uL Monocytes # (0-1.0) k/uL Eosinophils # (0-0.7) k/uL Basophils # (0-0.2) k/uL Macrocytosis PT (10.0-12.5) sec INR (<1.2) APTT (22.0-30.0) sec Sodium 142 (137-145) mmol/L Potassium 4.2 (3.5-5.1) mmol/L Chloride 110 H (98-107) mmol/L Carbon Dioxide 18 L (22-30) mmol/L Anion Gap 14 mmol/L BUN 19 (9-20) mg/dL Creatinine 1.10 (0.66-1.25) mg/dL Est GFR (CKD-EPI)AfAm 79 (>60 ml/min/1.73 sqM) Est GFR (CKD-EPI)NonAf 68 (>60 ml/min/1.73 sqM) Glucose 91 (74-99) mg/dL Lactic Ac Sepsis Rflx Plasma Lactic Acid Elijah 2.2 H* (0.7-2.0) mmol/L Calcium 8.9 (8.4-10.2) mg/dL Magnesium 1.9 (1.6-2.3) mg/dL Total Bilirubin 0.6 (0.2-1.3) mg/dL AST 94 H (17-59) U/L ALT 57 H (4-49) U/L Alkaline Phosphatase 62 (38-126) U/L Troponin I <0.012 (0.000-0.034) ng/mL Total Protein 6.9 (6.3-8.2) g/dL Albumin 4.1 (3.5-5.0) g/dL Urine Color Urine Appearance (Clear) Urine pH (5.0-8.0) Ur Specific [place] (1.001-1.035) Urine Protein (Negative) Urine Glucose (UA) (Negative) Urine Ketones (Negative) Urine Blood (Negative) Urine Nitrite (Negative) Urine Bilirubin (Negative) Urine Urobilinogen (<2.0) mg/dL Ur Leukocyte Esterase (Negative) Serum Alcohol 238 H* mg/dL 12/19/23 12/19/23 Range/Units 19:01 21:20 WBC (3.8-10.6) k/uL RBC (4.30-5.90) m/uL Hgb (13.0-17.5) gm/dL Hct (39.0-53.0) % MCV (80.0-100.0) fL MCH (25.0-35.0) pg MCHC (31.0-37.0) g/dL RDW (11.5-15.5) % Plt Count (150-450) k/uL MPV Neutrophils % % Lymphocytes % % Monocytes % % Eosinophils % % Basophils % % Neutrophils # (1.3-7.7) k/uL Lymphocytes # (1.0-4.8) k/uL Monocytes # (0-1.0) k/uL Eosinophils # (0-0.7) k/uL Basophils # (0-0.2) k/uL Macrocytosis PT (10.0-12.5) sec INR (<1.2) APTT (22.0-30.0) sec Sodium (137-145) mmol/L Potassium (3.5-5.1) mmol/L Chloride (98-107) mmol/L Carbon Dioxide (22-30) mmol/L Anion Gap mmol/L BUN (9-20) mg/dL Creatinine (0.66-1.25) mg/dL Est GFR (CKD-EPI)AfAm (>60 ml/min/1.73 sqM) Est GFR (CKD-EPI)NonAf (>60 ml/min/1.73 sqM) Glucose (74-99) mg/dL Lactic Ac Sepsis Rflx Y Plasma Lactic Acid Elijah 2.0 (0.7-2.0) mmol/L Calcium (8.4-10.2) mg/dL Magnesium (1.6-2.3) mg/dL Total Bilirubin (0.2-1.3) mg/dL AST (17-59) U/L ALT (4-49) U/L Alkaline Phosphatase (38-126) U/L Troponin I (0.000-0.034) ng/mL Total Protein (6.3-8.2) g/dL Albumin (3.5-5.0) g/dL Urine Color Urine Appearance (Clear) Urine pH (5.0-8.0) Ur Specific [place] (1.001-1.035) Urine Protein (Negative) Urine Glucose (UA) (Negative) Urine Ketones (Negative) Urine Blood (Negative) Urine Nitrite (Negative) Urine Bilirubin (Negative) Urine Urobilinogen (<2.0) mg/dL Ur Leukocyte Esterase (Negative) Serum Alcohol mg/dL Disposition <Oksana Son - Last Filed: 12/19/23 17:43> Is patient prescribed a controlled substance at d/c from ED?: No Time of Disposition: 22:30 <Severiano Tsang - Last Filed: 12/19/23 22:36> Is patient prescribed a controlled substance at d/c from ED?: Yes When asked, does pt state using other controlled substances?: No If prescribed controlled substance>3 days was MAPS reviewed?: Prescribed <3 Days If opioid is for acute pain is fill amount 7 days or less?: Yes <Niko Hays - Last Filed: 12/30/23 07:42> Clinical Impression: Alcohol intoxication Disposition: HOME SELF-CARE Condition: Fair Instructions (If sedation given, give patient instructions): Alcohol Intoxica tion (ED) Prescriptions: diazePAM [Valium] 5 mg PO TID PRN 3 Days #9 tab PRN Reason: Anxiety Referrals: Larissa Harry MD [Primary Care Provider] - 1-2 days
--- NOTE | 2023-12-19 18:57 | XR ---
EXAMINATION TYPE: XR chest 2V DATE OF EXAM: 12/19/2023 COMPARISON: 12/02/2011 HISTORY: Shortness of breath TECHNIQUE: Frontal and lateral views of the chest are obtained. FINDINGS: Scattered senescent parenchymal changes noted. Hyperinflation compatible with COPD. No evidence for infiltrate. No evidence for atelectasis. Heart size is stable. Mediastinal structures are stable and grossly unremarkable. No evidence for hilar prominence. Degenerative changes dorsal spine. IMPRESSION: 1. No evidence for acute pulmonary disease.
[2023-12-19 19:01] LABS: ALT 57 U/L (4-49); AST 94 U/L (17-59); African American GFR (CKD) 79 (>60 ml/min/1.73 sqM); Albumin 4.1 g/dL (3.5-5.0); Alkaline Phosphatase 62 U/L (38-126); Anion Gap 14 mmol/L; Blood Urea Nitrogen 19 mg/dL (9-20); Calcium 8.9 mg/dL (8.4-10.2); Carbon Dioxide 18 mmol/L (22-30); Chloride 110 mmol/L (98-107); Glucose 91 mg/dL (74-99); Magnesium 1.9 mg/dL (1.6-2.3); Non-African American GFR(CKD) 68 (>60 ml/min/1.73 sqM); Potassium 4.2 mmol/L (3.5-5.1); Sodium 142 mmol/L (137-145); Total Bilirubin 0.6 mg/dL (0.2-1.3); Total Protein 6.9 g/dL (6.3-8.2)
[2023-12-19 19:02] LABS: Basophils % (A) 1 %; Eosinophils # (A) 0.1 k/uL (0-0.7); Eosinophils % (A) 2 %; HCT 45.8 % (39.0-53.0); HGB 15.5 gm/dL (13.0-17.5); Lymphocytes # (A) 1.7 k/uL (1.0-4.8); Lymphocytes % (A) 29 %; MCH 35.7 pg (25.0-35.0); MCHC 33.8 g/dL (31.0-37.0); MCV 105.5 fL (80.0-100.0); Macrocytosis Slight; Mean Platelet Volume 7.8; Monocytes # (A) 0.5 k/uL (0-1.0); Monocytes % (A) 8 %; Neutrophils # (A) 3.4 k/uL (1.3-7.7); Neutrophils % (A) 58 %; Platelet Count 180 k/uL (150-450); RBC 4.34 m/uL (4.30-5.90); RDW 13.4 % (11.5-15.5); WBC 5.9 k/uL (3.8-10.6)
[2023-12-19 19:03] LABS: Alcohol 238 mg/dL
[2023-12-19 19:16] LABS: INR 1.3 (<1.2); Partial Thromboplastin Time 28.3 sec (22.0-30.0); Prothrombin Time 13.3 sec (10.0-12.5)
[2023-12-19 21:11] LABS: Appearance,Urine Clear (Clear); Bilirubin,Urine Negative (Negative); Blood,Urine Negative (Negative); Color,Urine Yellow; Glucose,Urine (UA) Negative (Negative); Ketones,Urine Negative (Negative); Leukocyte Esterase,Urine Negative (Negative); Nitrite,Urine Negative (Negative); Protein,Urine Negative (Negative); Specific Gravity,Urine 1.018 (1.001-1.035); Urobilinogen,Urine <2.0 mg/dL (<2.0)
[2023-12-19] MEDS: SODIUM CHLORIDE 0.9% 2,000 ML IV STA (22:51)
[2023-12-19] MEDS: MAGNESIUM OXIDE 400 MG TAB PO STA (22:52)
[2023-12-20] MEDS: MAGNESIUM OXIDE 400 MG TAB PO STA (00:05)
[2023-12-20 01:51] VITALS: BP 121/92; PULSE 64; RESP 18; TEMP 97.8
== END 2023-12-20 00:50 | disposition home or self-care (01) ==
LOC: EC 17:24
DX: F10.129 Alcohol abuse with intoxication, unspecified (principal); I48.91 Unspecified atrial fibrillation; K21.9 Gastro-esophageal reflux disease without esophagitis; F41.9 Anxiety disorder, unspecified; Z87.891 Personal history of nicotine dependence; Z79.899 Other long term (current) drug therapy; Z79.82 Long term (current) use of aspirin; Z88.8 Allergy status to other drugs, medicaments and biological substances; Y90.7 Blood alcohol level of 200-239 mg/100 ml
CPT/HCPCS: 36415; 93005; 80053; 83605; 83735; 84484; 85025; 85610; 85730; 81003; 71046; 99285; 96360; G0480; 80320

== ENCOUNTER 2024-01-14 06:10 | Day surgery (SDC) | payer MEDICARE ==
[2024-01-12 09:34] VITALS: BMI 29.7
[~2024-01-14 06:10] MED LIST changes: -ALPRAZolam 0.25 MG TAB PO PRN; -ALPRAZolam 0.5 MG TAB PO PRN; -ASPIRIN 325 MG TAB PO STA; -ASPIRIN 81 MG PO SCH; -ATORVASTATIN 80 MG TAB PO STA; -BENZOCAINE SPRAY 1 CAN TOPICAL ONE; -FENOFIBRATE 160 MG TAB PO SCH; -HEPARIN SODIUM 1,000 UN/ML (10ML VL) IV ONE; -HEPARIN SODIUM 1,000 UN/ML (10ML VL) ONE; -HEPARIN SODIUM,PORCINE 10,000 UNIT in SODIUM CHLORIDE 0.9% 1,000 ML IRRIGATION PRN; -HEPARIN SODIUM,PORCINE 2,500 UNIT in SODIUM CHLORIDE 0.9% 250 ML IRRIGATION PRN; -IOPAMIDOL-370 125ML BTL INJ ONE; -LIDOCAINE 1% INJ 10MG/ML (20 ML MDV) ONE; -LIDOCAINE 1% INJ 10MG/ML (20 ML MDV) SQ ONE; -MIDAZOLAM 2 MG/2 ML VIAL IV ONE; -NITROGLYCERIN SL TABS 0.4 MG TAB SUBLINGUAL PRN; -PANTOPRAZOLE 40 MG TABLET PO SCH; -RX INFO: IV CONTRAST WAS GIVEN 1 EACH MISC MISCELLANE PRN; -SERTRALINE 100 MG TAB PO SCH; -SODIUM CHLORIDE 0.9% 1,000 ML IV ONE; -SODIUM CHLORIDE 0.9% 1,000 ML in EMPTY BAG 1 BAG IV SCH; -VALSARTAN 160 MG TAB PO SCH; -VERAPAMIL 2.5 MG/ML 2 ML AMP ONE; -VERAPAMIL SYRINGE (5 MG/10 ML) INTRAARTER ONE; -fentaNYL (PF) 50 MCG/ML 2 ML AMP IV ONE; -fentaNYL (PF) 50 MCG/ML 2 ML AMP ONE; -traZODone HCL 50 MG TAB PO SCH
[2024-01-14] MEDS: LACTATED RINGERS 1,000 ML IV SCH (06:53)
[2024-01-14] MEDS ORDERED: PROPOFOL 10 MG/ML 20 ML VIAL IV ONE (07:48)
[2024-01-14] MEDS ORDERED: LIDOCAINE 1% INJ 10MG/ML (20 ML MDV) ONE (07:48)
[2024-01-14] MEDS: BENZOCAINE SPRAY 1 CAN TOPICAL ONE (08:00)
[2024-01-14] MEDS ORDERED: SODIUM CHLORIDE 0.9% 1,000 ML IV SCH (08:30)
--- NOTE | 2024-01-14 08:30 | P.PCN ---
Date of Procedure: 01/14/24 Description of Procedure: Indication: Atrial fibrillation Procedure Description: After explaining the procedure to the patient, it's risk and complications, blood pressure, heart rate and O2 saturation were monitored. The throat was sprayed with Cetacaine. Patient received sedation per anesthesia department. The probe was introduced into the esophagus without difficulty. Images were obtained. Following that, the probe was removed. There was no immediate complication. Findings: Left atrial size is dilated, left atrial appendage is normal. Left ventricle systolic function is mildly impaired, ejection fraction 45 to 50%. The aortic valve is a tricuspid valve, calcified with reduced opening, by planimetry the aortic valve area is 1.2 cm. Calcification of the mitral valve annulus was noted. The tricuspid valve appears to be normal. Descending thoracic aorta appears to be normal. No pericardial effusion was noted. Contrast bubble study revealed no shunting across the interatrial septum. Doppler: Pulse wave and color Doppler were obtained, and revealed moderate mitral and mild tricuspid regurgitation there was no shunting across the interatrial septum. Conclusion: 1. Dilated left atrium with normal appearance of the left atrial appendage 2. Mild impairment of the left ventricular systolic function 3. Moderate mitral regurgitation 4. Moderate aortic stenosis 5. No pericardial effusion Cardioversion: After obtaining the TAHIRA and sedated state per anesthesia department a syn chronized biphasic cardioversion using 150 J and subsequently 200 J was successful in restoring sinus mechanism. There was no immediate complications.
[2024-01-14 08:47] VITALS: PULSE 70
[2024-01-14] MEDS ORDERED: VALSARTAN 160 MG TAB PO SCH (09:00)
[2024-01-14] MEDS ORDERED: APIXABAN 5 MG TAB PO SCH (09:00)
[2024-01-14] MEDS ORDERED: NON FORMULARY DRUG (Omeprazole [Omeprazole] 20 MG Capsule.Dr) PO SCH (09:00)
[2024-01-14 09:21] VITALS: BP 126/86; RESP 16
[2024-01-14] MEDS ORDERED: SERTRALINE 50 MG TAB PO SCH (21:00)
[2024-01-14] MEDS ORDERED: traZODone HCL 50 MG TAB PO SCH (21:00)
== END 2024-01-14 09:35 | disposition home or self-care (01) ==
LOC: OR 06:10
PROVIDERS: ATTEND Internal Medicine Interventional Cardiology
DX: I08.0 Rheumatic disorders of both mitral and aortic valves (principal); I25.10 Atherosclerotic heart disease of native coronary artery without angina pectoris; I10 Essential (primary) hypertension; E78.5 Hyperlipidemia, unspecified; I48.11 Longstanding persistent atrial fibrillation; F32.A Depression, unspecified; F41.9 Anxiety disorder, unspecified; Z79.01 Long term (current) use of anticoagulants; Z79.82 Long term (current) use of aspirin; Z79.899 Other long term (current) drug therapy
CPT/HCPCS: 93312; 93320; 93325; 92960; J2001; J2704

== ENCOUNTER → 2024-09-22 | Outpatient (CLI) | payer MEDICARE ==
[2024-09-22 15:06] LABS: Basophils # (A) 0.05 X 10*3/uL (0.00-0.10); Basophils % (A) 0.9 %; Eosinophils # (A) 0.14 X 10*3/uL (0.04-0.35); Eosinophils % (A) 2.6 %; HCT 41.5 % (39.6-50.0); HGB 14.6 g/dL (13.0-17.0); Lymphocytes # (A) 1.82 X 10*3/uL (0.90-5.00); Lymphocytes % (A) 34.2 %; MCH 33.8 pg (27.0-32.0); MCHC 35.2 g/dL (32.0-37.0); MCV 96.1 FL (80.0-97.0); Mean Platelet Volume 10.3 FL (9.5-12.2); Monocytes # (A) 0.45 X 10*3/uL (0.20-1.00); Monocytes % (A) 8.5 %; NRBC Per 100 WBC 0 X 10*3/uL (0.00-0.01); Neutrophils # (A) 2.84 X 10*3/uL (1.80-7.70); Neutrophils % (A) 53.4 %; Platelet Count 156 X 10*3/uL (140-440); RBC 4.32 X 10*6/uL (4.40-5.60); RDW 13.5 % (11.5-14.5); WBC 5.32 X 10*3/uL (4.50-10.00)
[2024-09-22 15:08] LABS: INR 1.12 sec (0.93-1.11)
[2024-09-22 15:40] LABS: ALT 14 U/L (10-49); AST 18 U/L (14-35); Alkaline Phosphatase 58 U/L (41-126); Blood Urea Nitrogen 22.1 mg/dL (9.0-27.0); Calcium 8.9 mg/dL (8.7-10.3); Carbon Dioxide 22.5 mmol/L (21.6-31.8); Chloride 105 mmol/L (96-109); Chol/HDL Ratio 3.49 Ratio; Globulin 2.5 g/dL (1.6-3.3); Glucose 94 mg/dL (70-110); LDL Cholesterol,Calculated 66.7 mg/dL (0.0-131.0); Magnesium 1.9 mg/dL (1.5-2.4); Potassium 4.5 mmol/L (3.5-5.5); Sodium 139 mmol/L (135-145); Total Bilirubin 0.6 mg/dL (0.3-1.2); Total Protein 6.5 g/dL (6.2-8.2)
== END | disposition home or self-care (01) ==
LOC: LABWHC1 08:08
PROVIDERS: ATTEND Internal Medicine Interventional Cardiology
DX: Z00.00 Encounter for general adult medical examination without abnormal findings (principal); I10 Essential (primary) hypertension; I25.119 Atherosclerotic heart disease of native coronary artery with unspecified angina pectoris; E78.2 Mixed hyperlipidemia; E55.9 Vitamin D deficiency, unspecified; R35.0 Frequency of micturition; I48.0 Paroxysmal atrial fibrillation
CPT/HCPCS: 36415; 80053; 80061; 82306; 83735; 85025; 85610

== ENCOUNTER 2025-01-05 10:59 | Observation (INO) | payer MEDICARE ==
--- NOTE | 2025-01-05 11:21 | ED ---
Recheck HPI - General Chief Complaint: Recheck/Abnormal Lab/Rx Stated Complaint: Diverticulitis Time Seen by Provider: 01/05/25 11:17 Source: patient, RN notes reviewed Mode of arrival: ambulatory Limitations: no limitations - History of Present Illness Initial Comments: 69-year-old male presents emergency department chief complaint abdominal pain. Patient been having worsening abdominal pain has been having on and off issues since October he has been monitored by his PCP Dr. Harry. Patient had recent CAT scan and December 24 without any acute findings patient had worsening pain, shaking episodes from this pain. He was advised to come to emergency department today. - Related Data Home Medications Medication Instructions Recorded Confirmed ALPRAZolam [Xanax] 0.5 - 1 mg PO BID PRN 05/17/20 01/14/24 Fenofibrate 160 mg PO HS 05/17/20 01/14/24 Omeprazole 20 mg PO QAM 05/17/20 01/14/24 traZODone HCL 50 mg PO HS 05/17/20 01/14/24 Valsartan 160 mg PO QAM 01/21/22 01/14/24 Aspirin 81 mg PO DAILY 01/22/22 01/14/24 Apixaban [Eliquis] 5 mg PO BID 01/12/24 01/12/24 Sertraline [Zoloft] 50 mg PO HS 01/12/24 01/14/24 Allergies Allergy/AdvReac Type Severity Reaction Status Date / Time bacitracin Allergy Swelling Verified 01/05/25 11:05 [From Neosporin ([id number])] neomycin Allergy Swelling Verified 01/05/25 11:05 [From Neosporin ([id number])] polymyxin B Allergy Swelling Verified 01/05/25 11:05 [From Neosporin ([id number])] Review of Systems ROS Statement: Those systems with pertinent positive or pertinent negative responses have been documented in the HPI. ROS Other: All systems not noted in ROS Statement are negative. Past Medical History Past Medical History: Atrial Fibrillation, GERD/Reflux, Hyperlipidemia, Hypertension Additional Past Medical History / Comment(s): Hx of colitis. History of Any Multi-Drug Resistant Organisms: None Reported Past Surgical History: Joint Replacement, Orthopedic Surgery Additional Past Surgical History / Comment(s): Right knee arthroscopy X6, right ACL repair, right knee replacement X3. Past Anesthesia/Blood Transfusion Reactions: No Reported Reaction Past Psychological History: Anxiety Smoking Status: Former smoker Past Alcohol Use History: Occasional Past Drug Use History: None Reported - Past Family History Mother Family Medical History: No Reported History General Exam - General Exam Comments Initial Comments: Visual Physical Exam Vital signs reviewed General: Well-appearing, nontoxic, no acute distress. Head: Normocephalic, atraumatic Eyes: PERRLA, EOMI ENT: Airway patent Chest: Nonlabored breathing Skin: No visual rash, normal skin tone Neuro: Alert and oriented 3 Musculoskeletal: No gross abnormalities Limitations: no limitations General appearance: alert, in no apparent distress Head exam: Present: atraumatic, normocephalic, normal inspection Respiratory exam: Present: normal lung sounds bilaterally. Absent: respiratory distress, wheezes, rales, rhonchi, stridor Cardiovascular Exam: Present: regular rate, normal rhythm, normal heart sounds. Absent: systolic murmur, diastolic murmur, rubs, gallop, clicks GI/Abdominal exam: Present: soft, tenderness, normal bowel sounds. Absent: distended, guarding, rebound, rigid Course Vital Signs 01/05/25 11:03 Temperature 97.5 F L Pulse Rate 83 Respiratory 20 Rate Blood Pressure 154/89 O2 Sat by Pulse 99 Oximetry Medical Decision Making - Medical Decision Making I completed the quick note portion of this chart signed Luis Miguel Parker PA-C Was pt. sent in by a medical professional or institution ([facility] Steele, [employer], urgent care, hospital, or long term...) When possible be specific @ -PCP Did you speak to anyone other than the patient for history (EMS, parent, family, police, friend...)? What history was obtained from this source @ -No Did you review nursing and triage notes (agree or disagree)? Why? @ -I reviewed and agree with nursing and triage notes Were old charts reviewed (outside hosp., previous admission, EMS record, old EKG, old radiological studies, urgent care reports/EKG's, long term records)? Report findings @ -[CT of the abdomen pelvis reviewed from 01/03/2025 showed no acute intra- abdominal process Differential Diagnosis (chest pain, altered mental status, abdominal pain women, abdominal pain men, vaginal bleeding, weakness, fever, dyspnea, syncope, headache, dizziness, GI bleed, back pain, seizure, CVA, palpatations, mental health, musculoskeletal)? @ -Differential Abdominal Pain Men: Appendicitis, cholecystitis, diverticulosis, ischemic bowel, pancreatitis, hepatitis, UTI, gastroenteritis, AAA, incarcerated hernia, bowel obstruction, constipation, inflammatory bowel, hepatitis, peptic ulcer disease, splenic infarction, perforated viscus, testicular torsion, this is not meant to be an all-inclusive list EKG interpreted by me (3pts min.). @ -None X-rays interpreted by me (1pt min.). @ -None done CT interpreted by me (1pt min.). @ -CT abdomen pelvis showing uncomplicated diverticulitis U/S interpreted by me (1pt. min.). @ -None done What testing was considered but not performed or refused? (CT, X-rays, U/S, labs)? Why? @ -None What meds were considered but not given or refused? Why? @ -None Did you discuss the management of the patient with other professionals (professionals i.e. , PA, [employer], lab, RT, psych nurse, elementary school social worker, junior underwriter, teacher, chief green officer, case repairer)? Give summary @ -Dr. Haywood for admission Was smoking cessation discussed for >3mins.? @ -No Was critical care preformed (if so, how long)? @ -No Were there social determinants of health that impacted care today? How? (Homelessness, low income, unemployed, alcoholism, drug addiction, transportation, low edu. Level, literacy, decrease access to med. care, long-term, rehab)? @ -No Was there de-escalation of care discussed even if they declined (Discuss DNR or withdrawal of care, Hospice)? DNR status @ -No What co-morbidities impacted this encounter? (DM, HTN, Smoking, COPD, CAD, Cancer, CVA, ARF, Chemo, Hep., AIDS, mental health diagnosis, sleep apnea, morbid obesity)? @ -None Was patient admitted / discharged? Hospital course, mention meds given and route, prescriptions, significant lab abnormalities, going to OR and other pertinent info. @ -Admitted patient's found to have acute diverticulitis nursing leukocytosis or fever patient does have lactic acidosis patient was given IV fluids, antibiotics blood culture drawn. Patient will be admitted for further treatment and evaluation Undiagnosed new problem with uncertain prognosis? @ -No Drug Therapy requiring intensive monitoring for toxicity (Heparin, Nitro, Insulin, Cardizem)? @ -No Were any procedures done? @ -No Diagnosis/symptom? @ -Diverticulitis Acute, or Chronic, or Acute on Chronic? @ -Acute Uncomplicated (without systemic symptoms) or Complicated (systemic symptoms)? @ -complicated Side effects of treatment? @ -No Exacerbation, Progression, or Severe Exacerbation? @ -No Poses a threat to life or bodily function? How? (Chest pain, [place], [place], pneumonia, PE, COPD, DKA, ARF, appy, cholecystitis, CVA, Diverticulitis, Homicidal, Suicidal, threat to staff... and all critical care pts) @ -Yes diverticulitis may lead to sepsis] - Lab Data Result diagrams: 01/05/25 11:15 01/05/25 11:15 Lab Results 01/05/25 01/05/25 01/05/25 Range/Units 11:15 11:15 11:15 WBC 6.0 (3.8-10.6) k/uL RBC 4.71 (4.30-5.90) m/uL Hgb 15.9 (13.0-17.5) gm/dL Hct 48.2 (39.0-53.0) % MCV 102.2 H (80.0-100.0) fL MCH 33.6 (25.0-35.0) pg MCHC 32.9 (31.0-37.0) g/dL RDW 13.6 (11.5-15.5) % Plt Count 210 (150-450) k/uL MPV 7.7 Neutrophils % 64 % Lymphocytes % 26 % Monocytes % 5 % Eosinophils % 2 % Basophils % 1 % Neutrophils # 3.8 (1.3-7.7) k/uL Lymphocytes # 1.6 (1.0-4.8) k/uL Monocytes # 0.3 (0-1.0) k/uL Eosinophils # 0.1 (0-0.7) k/uL Basophils # 0.1 (0-0.2) k/uL Macrocytosis Slight Sodium 140 (137-145) mmol/L Potassium 4.9 (3.5-5.1) mmol/L Chloride 103 (98-107) mmol/L Carbon Dioxide 20 L (22-30) mmol/L Anion Gap 17 mmol/L BUN 19 (9-20) mg/dL Creatinine 1.24 (0.66-1.25) mg/dL Est GFR (CKD-EPI)AfAm 68 (>60 ml/min/1.73 sqM) Est GFR (CKD-EPI)NonAf 59 (>60 ml/min/1.73 sqM) Glucose 112 H (74-99) mg/dL Lactic Ac Sepsis Rflx Plasma Lactic Acid Elijah 3.9 H* (0.7-2.0) mmol/L Calcium 9.3 (8.4-10.2) mg/dL Total Bilirubin 0.7 (0.2-1.3) mg/dL AST 26 (17-59) U/L ALT 20 (4-49) U/L Alkaline Phosphatase 66 (38-126) U/L Total Protein 7.8 (6.3-8.2) g/dL Albumin 4.7 (3.5-5.0) g/dL 01/05/25 Range/Units 11:53 WBC (3.8-10.6) k/uL RBC (4.30-5.90) m/uL Hgb (13.0-17.5) gm/dL Hct (39.0-53.0) % MCV (80.0-100.0) fL MCH (25.0-35.0) pg MCHC (31.0-37.0) g/dL RDW (11.5-15.5) % Plt Count (150-450) k/uL MPV Neutrophils % % Lymphocytes % % Monocytes % % Eosinophils % % Basophils % % Neutrophils # (1.3-7.7) k/uL Lymphocytes # (1.0-4.8) k/uL Monocytes # (0-1.0) k/uL Eosinophils # (0-0.7) k/uL Basophils # (0-0.2) k/uL Macrocytosis Sodium (137-145) mmol/L Potassium (3.5-5.1) mmol/L Chloride (98-107) mmol/L Carbon Dioxide (22-30) mmol/L Anion Gap mmol/L BUN (9-20) mg/dL Creatinine (0.66-1.25) mg/dL Est GFR (CKD-EPI)AfAm (>60 ml/min/1.73 sqM) Est GFR (CKD-EPI)NonAf (>60 ml/min/1.73 sqM) Glucose (74-99) mg/dL Lactic Ac Sepsis Rflx Y Plasma Lactic Acid Elijah (0.7-2.0) mmol/L Calcium (8.4-10.2) mg/dL Total Bilirubin (0.2-1.3) mg/dL AST (17-59) U/L ALT (4-49) U/L Alkaline Phosphatase (38-126) U/L Total Protein (6.3-8.2) g/dL Albumin (3.5-5.0) g/dL Disposition Clinical Impression: Acute diverticulitis Disposition: ADMITTED IP TO THIS HOSP Condition: Fair Referrals: Larissa Harry MD [Primary Care Provider] - 1-2 days Time of Disposition: 13:30
[2025-01-05 11:29] LABS: Basophils # (A) 0.1 k/uL (0-0.2); Basophils % (A) 1 %; Eosinophils # (A) 0.1 k/uL (0-0.7); Eosinophils % (A) 2 %; HCT 48.2 % (39.0-53.0); HGB 15.9 gm/dL (13.0-17.5); Lymphocytes # (A) 1.6 k/uL (1.0-4.8); Lymphocytes % (A) 26 %; MCH 33.6 pg (25.0-35.0); MCHC 32.9 g/dL (31.0-37.0); MCV 102.2 fL (80.0-100.0); Macrocytosis Slight; Mean Platelet Volume 7.7; Monocytes # (A) 0.3 k/uL (0-1.0); Monocytes % (A) 5 %; Neutrophils # (A) 3.8 k/uL (1.3-7.7); Neutrophils % (A) 64 %; Platelet Count 210 k/uL (150-450); RBC 4.71 m/uL (4.30-5.90); RDW 13.6 % (11.5-15.5)
[2025-01-05 12:03] LABS: ALT 20 U/L (4-49); AST 26 U/L (17-59); African American GFR (CKD) 68 (>60 ml/min/1.73 sqM); Albumin 4.7 g/dL (3.5-5.0); Alkaline Phosphatase 66 U/L (38-126); Anion Gap 17 mmol/L; Blood Urea Nitrogen 19 mg/dL (9-20); Calcium 9.3 mg/dL (8.4-10.2); Carbon Dioxide 20 mmol/L (22-30); Chloride 103 mmol/L (98-107); Glucose 112 mg/dL (74-99); Non-African American GFR(CKD) 59 (>60 ml/min/1.73 sqM); Potassium 4.9 mmol/L (3.5-5.1); Sodium 140 mmol/L (137-145); Total Bilirubin 0.7 mg/dL (0.2-1.3); Total Protein 7.8 g/dL (6.3-8.2)
--- NOTE | 2025-01-05 13:00 | CT ---
EXAMINATION TYPE: CT abdomen pelvis w con CT DLP: 1355 mGycm, Automated exposure control for dose reduction was used. DATE OF EXAM: 01/05/2025 12:52 PM COMPARISON: CT abdomen pelvis 12/24/2024, 05/17/2020 CLINICAL INDICATION:Male, 69 years old with history of pain; ABDOMINAL PAIN, CONSTIPATION AND VOMITIN G TECHNIQUE: Standard CT of the abdomen and pelvis following the administration of 100 cc of Isovue 3 00 IV contrast material. Coronal and sagittal reformats were performed. FINDINGS: LOWER CHEST:Visualized lungs are clear. Mild cardiomegaly. Mitral anus and aortic valvular calcificat ions. Coronary artery calcifications. ABDOMEN LIVER: Diffusely hypoattenuating parenchyma consistent with steatosis. No focal lesion. GALLBLADDER AND BILE DUCTS: The gallbladder is surgically absent. No biliary ductal dilatation. PANCREAS: Unremarkable. SPLEEN: Unremarkable. ADRENAL GLANDS: Unremarkable. KIDNEYS AND URETERS: No evidence of hydronephrosis or renal calculus. The kidneys enhance symmetrical ly. Contrast is demonstrated within both collecting systems on the delayed phase. PELVIS BLADDER: Unremarkable REPRODUCTIVE: Unremarkable. ABDOMEN & PELVIS STOMACH AND BOWEL: Small hiatal hernia, duodenum is unremarkable. Distal colonic diverticula with fat stranding and wall thickening involving the descending colon sigmoid junction in the left lower quad rant (series 202, image 39). No pericolonic abscess. The appendix is not visualized however there is no significant inflammatory changes within the right lower quadrant. No evidence of bowel obstruction . PERITONEUM: No evidence of pneumoperitoneum or free fluid. VASCULATURE: Mild atherosclerotic calcifications are present throughout the abdominal aorta and its b ranches. No evidence of aortic aneurysm. MUSCULOSKELETAL: No acute osseous abnormalities. Moderate multilevel disc degeneration changes are pr esent throughout the thoracolumbar spine. LYMPH NODES: No evidence for lymphadenopathy. SOFT TISSUE/ABDOMINAL WALL: Small fat filled umbilical hernia. IMPRESSION: Uncomplicated acute diverticulitis at the descending/sigmoid colon junction. [facility], , 01/05/2025 12:58 PM
[2025-01-05] MEDS ORDERED: HYDROcodone/APAP 5-325MG 1 EACH TAB PO PRN (13:30)
[2025-01-05] MEDS ORDERED: HYDROmorphone 0.5 MG/0.5 ML SYRINGE IVP PRN (13:30)
[2025-01-05] MEDS ORDERED: ONDANSETRON 4 MG/2 ML VIAL IVP PRN (13:30)
[2025-01-05] MEDS ORDERED: NALOXONE 0.4 MG/ML 1 ML VIAL IV PRN (13:30)
[2025-01-05] MEDS: SODIUM CHLORIDE 0.9% 1,000 ML IV SCH (14:42)
[2025-01-05] MEDS: SODIUM CHLORIDE 0.9% 1,000 ML IV ONE (14:42)
[2025-01-05] MEDS ORDERED: ALPRAZolam 0.5 MG TAB PO PRN (14:58)
--- NOTE | 2025-01-05 15:27 | P.GSCN ---
History of Present Illness Consult date: 01/05/25 History of present illness: CHIEF COMPLAINT: Abdominal pain HISTORY OF PRESENT ILLNESS: This is a 69-year-old male with a history of diverticulitis. He presents the hospital with complaints of left lower quadrant abdominal pain that been ongoing for the past 2 weeks. Patient reports he had a flareup of his diverticulitis on November 12 and had been antibiotics for 2 weeks from his PCP. Patient has been having issues with diarrhea and abdominal cramping. Also been having full body shaking. He denies any fevers. Denies chills or sweats. He did have some nausea and vomiting. His stool has been loose and black. He also has been complaining of heartburn and indigestion. CT scan had reported uncomplicated diverticulitis. He was started on IV antibiotics. His last EGD was in 2019 and colonoscopy he believes was 5 years ago and had reported diverticulosis. He does have a past medical history of atrial fibrillation and last dose of Eliquis was last night. PAST MEDICAL HISTORY: Atrial fibrillation, GERD, hyperlipidemia, hypertension, C. difficile colitis, diverticulitis, mitral valve regurgitation PAST SURGICAL HISTORY: Cholecystectomy MEDICATIONS: See below ALLERGIES: See below SOCIAL HISTORY: No illicit drug use. REVIEW OF SYSTEMS: CONSTITUTIONAL: Denies fever or chills. HEENT: Denies blurred vision, vision changes, or eye pain. Denies hemoptysis CARDIOVASCULAR: Denies chest pain or pressure. RESPIRATORY: No shortness of breath. GASTROINTESTINAL: See HPI for pertinent findings HEMATOLOGIC: Denies bleeding disorders. GENITOURINARY: Denies any blood in urine or increased urinary frequency. SKIN: Denies pruitis. Denies rash. PHYSICAL EXAM: VITAL SIGNS: Reviewed GENERAL: Well-developed in no acute distress. HEENT: No sclera icterus. Extraocular movements grossly intact. Moist buccal mucosa. Head is atraumatic, normocephalic. No nasal drainage. ABDOMEN: Soft. Nondistended. Tenderness palpation left lower quadrant. No rebound or guarding noted. NEUROLOGIC: Alert and oriented. Cranial nerves II through XII grossly intact. LABORATORY DATA: WBC is 6.0 Hgb 15.9 platelets 210 Sodium 140 potassium is 4.9 creatinine 1.24 Lactic acid 3.9 elevated IMAGING: CT scan abdomen pelvis reports uncomplicated acute diverticulitis at the descending sigmoid colon junction ASSESSMENT: 1. Acute diverticulitis at the descending sigmoid colon junction 2. History of diverticulitis 3. Melanotic stools PLAN: -Continue IV antibiotics -Keep patient n.p.o. -Continue IV fluids -Continue pain management -Repeat labs in a.m. -Continue to monitor -Hold Eliquis for now Physician Accountant Property note has been reviewed by physician. Signing provider agrees with the documented findings, assessment, and plan of care. I have personally seen and examined the patient, reviewed the SHOW CARD LETTERER /PAs history, exam and MDM and agree with the assessment and plan as written. Based on total visit time, I have performed more than 50% of the visit. As above: Patient with left lower quadrant pain. CAT scan reviewed and shows very subtle inflammatory changes of the descending colon approximately 5 to 10 cm proximal to the colorectal anastomosis. Etiology for melanotic stools unclear. Will monitor lab values at this time. May begin liquid diet. Continue antibiotics. Will follow. Past Medical History Past Medical History: Atrial Fibrillation, GERD/Reflux, Hyperlipidemia, Hypertension Additional Past Medical History / Comment(s): Hx of colitis. History of Any Multi-Drug Resistant Organisms: None Reported Past Surgical History: Joint Replacement, Orthopedic Surgery Additional Past Surgical History / Comment(s): Right knee arthroscopy X6, right ACL repair, right knee replacement X3. Past Anesthesia/Blood Transfusion Reactions: No Reported Reaction Past Psychological History: Anxiety Smoking Status: Former smoker Past Alcohol Use History: Occasional Past Drug Use History: None Reported - Past Family History Mother Family Medical History: No Reported History Medications and Allergies Home Medications Medication Instructions Recorded Confirmed Type Valsartan 160 mg PO HS 01/21/22 01/05/25 History Apixaban [Eliquis] 5 mg PO BID 01/12/24 01/05/25 History Sertraline [Zoloft] 50 mg PO HS 01/12/24 01/05/25 History ALPRAZolam [Xanax] 0.5 mg PO BID PRN 01/05/25 01/05/25 History Allergies Allergy/AdvReac Type Severity Reaction Status Date / Time bacitracin Allergy Swelling Verified 01/05/25 14:36 [From Neosporin ([id number])] neomycin Allergy Swelling Verified 01/05/25 14:36 [From Neosporin ([id number])] polymyxin B Allergy Swelling Verified 01/05/25 14:36 [From Neosporin ([id number])] Surgical - Exam Vital Signs Temp Pulse Resp BP Pulse Ox 97.5 F L 83 20 154/89 99 01/05/25 11:03 01/05/25 11:03 01/05/25 11:03 01/05/25 11:03 01/05/25 11:03 Results - Labs 01/05/25 11:15 01/05/25 11:15 Abnormal Lab Results - Last 24 Hours (Table) 01/05/25 01/05/25 01/05/25 Range/Units 11:15 11:15 11:15 MCV 102.2 H (80.0-100.0) fL Carbon Dioxide 20 L (22-30) mmol/L Glucose 112 H (74-99) mg/dL Plasma Lactic Acid Elijah 3.9 H* (0.7-2.0) mmol/L 01/05/25 Range/Units 14:30 MCV (80.0-100.0) fL Carbon Dioxide (22-30) mmol/L Glucose (74-99) mg/dL Plasma Lactic Acid Elijah 3.9 H* (0.7-2.0) mmol/L Diabetes panel 01/05/25 Range/Units 11:15 Sodium 140 (137-145) mmol/L Potassium 4.9 (3.5-5.1) mmol/L Chloride 103 (98-107) mmol/L Carbon Dioxide 20 L (22-30) mmol/L BUN 19 (9-20) mg/dL Creatinine 1.24 (0.66-1.25) mg/dL Glucose 112 H (74-99) mg/dL Calcium 9.3 (8.4-10.2) mg/dL AST 26 (17-59) U/L ALT 20 (4-49) U/L Alkaline Phosphatase 66 (38-126) U/L Total Protein 7.8 (6.3-8.2) g/dL Albumin 4.7 (3.5-5.0) g/dL Calcium panel 01/05/25 Range/Units 11:15 Calcium 9.3 (8.4-10.2) mg/dL Albumin 4.7 (3.5-5.0) g/dL Pituitary panel 01/05/25 Range/Units 11:15 Sodium 140 (137-145) mmol/L Potassium 4.9 (3.5-5.1) mmol/L Chloride 103 (98-107) mmol/L Carbon Dioxide 20 L (22-30) mmol/L BUN 19 (9-20) mg/dL Creatinine 1.24 (0.66-1.25) mg/dL Glucose 112 H (74-99) mg/dL Calcium 9.3 (8.4-10.2) mg/dL Adrenal panel 01/05/25 Range/Units 11:15 Sodium 140 (137-145) mmol/L Potassium 4.9 (3.5-5.1) mmol/L Chloride 103 (98-107) mmol/L Carbon Dioxide 20 L (22-30) mmol/L BUN 19 (9-20) mg/dL Creatinine 1.24 (0.66-1.25) mg/dL Glucose 112 H (74-99) mg/dL Calcium 9.3 (8.4-10.2) mg/dL Total Bilirubin 0.7 (0.2-1.3) mg/dL AST 26 (17-59) U/L ALT 20 (4-49) U/L Alkaline Phosphatase 66 (38-126) U/L Total Protein 7.8 (6.3-8.2) g/dL Albumin 4.7 (3.5-5.0) g/dL
[2025-01-05] MEDS: PIPERACILLIN-TAZOBACTAM 3.375 GM in SODIUM CHLORIDE 0.9% 100 ML IVPB SCH (16:21)
[2025-01-05] MEDS: VALSARTAN 160 MG TAB PO SCH (20:26)
[2025-01-05] MEDS: SERTRALINE 50 MG TAB PO SCH (20:26)
[2025-01-05] MEDS: CALCIUM CARBONATE 500 MG CHEWABLE PO PRN (20:26)
[2025-01-05] MEDS ORDERED: APIXABAN 5 MG TAB PO SCH (21:00)
[2025-01-06 02:39] LABS: Basophils % (A) 1 %; Eosinophils # (A) 0.1 k/uL (0-0.7); Eosinophils % (A) 1 %; HCT 41.1 % (39.0-53.0); HGB 13.7 gm/dL (13.0-17.5); Lymphocytes # (A) 1.9 k/uL (1.0-4.8); Lymphocytes % (A) 28 %; MCH 34.3 pg (25.0-35.0); MCHC 33.3 g/dL (31.0-37.0); MCV 103.1 fL (80.0-100.0); Macrocytosis Slight; Mean Platelet Volume 7.7; Monocytes # (A) 0.5 k/uL (0-1.0); Monocytes % (A) 8 %; Neutrophils % (A) 61 %; Platelet Count 161 k/uL (150-450); RBC 3.99 m/uL (4.30-5.90); RDW 13.5 % (11.5-15.5); WBC 6.7 k/uL (3.8-10.6)
[2025-01-06 03:02] LABS: ALT 17 U/L (4-49); AST 21 U/L (17-59); African American GFR (CKD) 78 (>60 ml/min/1.73 sqM); Albumin 3.6 g/dL (3.5-5.0); Alkaline Phosphatase 58 U/L (38-126); Anion Gap 11 mmol/L; Blood Urea Nitrogen 13 mg/dL (9-20); Calcium 8.4 mg/dL (8.4-10.2); Carbon Dioxide 22 mmol/L (22-30); Chloride 106 mmol/L (98-107); Glucose 97 mg/dL (74-99); Non-African American GFR(CKD) 68 (>60 ml/min/1.73 sqM); Potassium 3.8 mmol/L (3.5-5.1); Sodium 139 mmol/L (137-145); Total Protein 6.1 g/dL (6.3-8.2)
--- NOTE | 2025-01-06 06:52 | P.HPIM ---
History of Present Illness H&P Date: 01/05/25 Chief Complaint: Acute Diverticulitis HISTORY OF PRESENT ILLNESS: This is a 69-year-old male with a previous medical history significant for hypertension and hypertensive cardiovascular disease, history of coronary artery disease, mitral regurgitation, history of mixed hyperlipidemia, history of vitamin D deficiency, history of diverticulosis, apparently the patient has been suffering from significant issues with on and off left lower quadrant abdominal pain associated with recurrent diarrhea and increased abdominal cramping not able to go to the bathroom, initially he was seen on November 12, 2024 when he was treated with oral antibiotic due to suspected left-sided sigmoid diverticulitis, he was feeling a bit better after a while, he came to the office again on December 21, 2024 with increased abdominal pain associated with increased cramps at that time he was sent for a CT scan of the abdomen pelvis that did not show evidence of acute diverticulitis this did show evidence of diverticulosis, he was treated with oral antibiotic at the same time, and the patient had stool study that was negative for acute abnormalities including C. difficile toxins as well as an ova and parasite, WBC in the stool, he was positive for lactoferrin, patient decided to come to the peds department yesterday because of increased abdominal pain left lower quadrant associated with diarrhea as well as intractable cramps, he was having this shaking chills as well, he had a CT scan of the abdomen pelvis in the emergency department that showed evidence of uncomplicated left-sided diverticulitis he was started on IV antibiotic in the form of Zosyn 3.375 g piggyback every 8 hours, he was admitted to the hospital he was started on IV pain management as well, surgical consultation was obtained from Dr. Wellington REVIEW OF SYSTEMS: Constitutional: No documented fever, no chills, no night sweats. No weight change. No weakness, fatigue or lethargy. No daytime sleepiness. EENT: No headache. No blurred vision or double vision, no loss of vision. No loss of Hearing, no ringing in the ears, no dizziness. No nasal drainage or congestion. No epistaxis. No sore throat. Lungs: No shortness of breath, no cough, no sputum production. No wheezing. Reports dyspnea with activity. Cardiovascular: No chest pain, no lower extremity edema. No palpitations. No paroxysmal nocturnal dyspnea. No orthopnea. No lightheadedness or dizziness. No syncopal episodes. Abdominal: Reports abdominal pain. No nausea, vomiting. positive for diarrhea. No constipation. No bloody but positive for melanotic stools reports loss of appetite. Genitourinary: No dysuria, increased frequency, urgency. No urinary retention. Musculoskeletal: No myalgias. No muscle weakness, no gait dysfunction, no frequent falls. No back pain. No neck pain. Integumentary: No wounds, no lesions. No rash or pruritus. No unusual bruising. No change in hair or nails. Neurologic: No aphasia. No facial droop. No change in mentation. No head injury. No headache. No paralysis. No paresthesia. Psychiatric: No depression. positive for anxiety. No mood swings. Endocrine: No abnormal blood sugars. No weight change. PAST MEDICAL HISTORY: Hypertension and hypertensive cardiovascular disease. Mixed hyperlipidemia. Coronary artery disease of nikolai coronary arteries. Anxiety disorder. Vitamin D deficiency. Mitral regurgitation. Paroxysmal atrial fibrillation PAST SURGICAL HISTORY: Colonoscopy 08/08/2020 Left heart catheterization 01/22/2022 Right total knee arthroplasty 2007 Right inguinal hernia repair 1994 Jamaal andres 2006 Right knee revision 2009 right knee revision 2011 SOCIAL HISTORY: Patient denies any history of smoking he drinks on a regular basis, he denies any drug use or abuse, he lives with his . FAMILY HISTORY: Father at age of 92 from [place] and also had history of CABG x 4 in his 70s mother at age of 84 from dementia Alzheimer type, patient has 2 brothers 1 with CABG x 3 in his 50s the other 1 is okay, patient has 4 sisters alive and well, patient has 2 sons alive and well, and 2 daughters alive and well. PHYSICAL EXAMINATION: General: 69-year-old male laying down in bed in minimal distress. HEENT: Head is atraumatic, normocephalic, pupils were equal round reactive to light and recommendation, extraocular muscle movement were intact, sclera nonicteric, conjunctivae were pale, mucous membranes of the mouth are somewhat dry. Neck: Supple, no JVP, normal carotid upstroke bilaterally, no lymphadenopathy. Chest: Decreased breath sounds at the bases, few rhonchi, no expiratory wheezes, no chest wall tenderness, no intercostal retractions. Heart: First heart sound is normal, second heart sounds normal there is systolic ejection murmur 2 over systolic in the left sternal border. Abdomen: Soft, mild tenderness to the left lower quadrant, no rebound or guarding positive bowel sounds. Extremities: There is no edema no calf tenderness DP +2 bilaterally. Neurologic examination: Patient is awake alert and oriented x3, cranial nerves II-12 appear grossly intact, muscle power were 5 out of 5 in upper extremities and 5 out of 5 in bilateral lower extremities, deep tendon reflexes normal bilaterally. ASSESSMENT AND PLAN: 1. Acute sigmoid diverticulitis that has been recurrent since November 12, 2024. Patient was admitted to hospital started on IV antibiotic in the form of Zosyn 3.375 g IV every 4 hours, continue pain management as outlined, continue postop care, diet, general surgery consultation was obtained. Follow-up with the patient very closely. 2. Hypertension and hypertensive cardiovascular disease. continue patient on valsartan 160 mg at bedtime, monitor the patient blood pressure very closely. 3. Mixed hyperlipidemia. Patient is not taking any statin at this point in time. He may need to be started on PCSK9 inhibitor. 4. Coronary artery disease follows with Dr. Gallo on a regular basis. Stable at this time. 5. Paroxysmal atrial fibrillation. Patient was taken off Eliquis and kept on nothing per mouth overnight surgery recommendation. 6. Anxiety disorder. Continue patient on Xanax as needed. Continue patient on sertraline 50 mg orally once every day. 7. DVT prophylaxis. Patient will was taken off Eliquis last night we will monitor very closely. 8. GI prophylaxis. Continue patient on Protonix. 9. Admit to inpatient. Estimated length of stay 2 midnights. 10. Patient is full code. Past Medical History Past Medical History: Atrial Fibrillation, GERD/Reflux, Hyperlipidemia, Hypertension Additional Past Medical History / Comment(s): Hx of colitis. History of Any Multi-Drug Resistant Organisms: None Reported Past Surgical History: Joint Replacement, Orthopedic Surgery Additional Past Surgical History / Comment(s): Right knee arthroscopy X6, right ACL repair, right knee replacement X3. Past Anesthesia/Blood Transfusion Reactions: No Reported Reaction Past Psychological History: Anxiety Smoking Status: Former smoker Past Alcohol Use History: Occasional Past Drug Use History: None Reported - Past Family History Mother Family Medical History: No Reported History Medications and Allergies Home Medications Medication Instructions Recorded Confirmed Type Valsartan 160 mg PO HS 01/21/22 01/05/25 History Apixaban [Eliquis] 5 mg PO BID 01/12/24 01/05/25 History Sertraline [Zoloft] 50 mg PO HS 01/12/24 01/05/25 History ALPRAZolam [Xanax] 0.5 mg PO BID PRN 01/05/25 01/05/25 History Allergies Allergy/AdvReac Type Severity Reaction Status Date / Time bacitracin Allergy Swelling Verified 01/05/25 14:36 [From Neosporin ([id number])] neomycin Allergy Swelling Verified 01/05/25 14:36 [From Neosporin ([id number])] polymyxin B Allergy Swelling Verified 01/05/25 14:36 [From Neosporin ([id number])] Physical Exam Vitals: Vital Signs Temp Pulse Resp BP Pulse Ox 01/05/25 14:54 85 17 156/83 97 01/05/25 11:03 97.5 F L 83 20 154/89 99 Intake and Output 01/04/25 01/05/25 01/05/25 22:59 06:59 14:59 Other: Weight 92.986 kg Results CBC & Chem 7: 01/06/25 02:04 01/06/25 02:04 Labs: Abnormal Lab Results - Last 24 Hours (Table) 01/05/25 01/05/25 01/05/25 Range/Units 11:15 11:15 11:15 MCV 102.2 H (80.0-100.0) fL Carbon Dioxide 20 L (22-30) mmol/L Glucose 112 H (74-99) mg/dL Plasma Lactic Acid Elijah 3.9 H* (0.7-2.0) mmol/L
[2025-01-06 07:31] LABS: ALT 17 U/L (4-49); AST 23 U/L (17-59); African American GFR (CKD) 75 (>60 ml/min/1.73 sqM); Albumin 3.6 g/dL (3.5-5.0); Alkaline Phosphatase 57 U/L (38-126); Anion Gap 9 mmol/L; Blood Urea Nitrogen 13 mg/dL (9-20); Calcium 8.4 mg/dL (8.4-10.2); Carbon Dioxide 24 mmol/L (22-30); Chloride 104 mmol/L (98-107); Glucose 96 mg/dL (74-99); Non-African American GFR(CKD) 65 (>60 ml/min/1.73 sqM); Potassium 3.8 mmol/L (3.5-5.1); Sodium 137 mmol/L (137-145); Total Bilirubin 1.2 mg/dL (0.2-1.3); Total Protein 6.1 g/dL (6.3-8.2)
[2025-01-06 09:38] LABS: Erythrocyte Sedimentation Rate 6 mm/Hr (0-20)
--- NOTE | 2025-01-06 11:22 | P.PN ---
Subjective Progress Note Date: 01/06/25 SURGICAL PROGRESS NOTE CHIEF COMPLAINT: Diverticulitis HISTORY OF PRESENT ILLNESS: Patient reports improvement in his abdominal pain. He denies any nausea or vomiting. He did have a bowel movement last night and this morning. He reports no further black stools. He is tolerating the clear liquids. Afebrile. WBC 6.7 Hgb 15 down to 13 lactic acid elevated 4.1 PHYSICAL EXAM: VITAL SIGNS: Reviewed. GENERAL: Well-developed in no acute distress. ABDOMEN: Soft. Nondistended. Minimal tenderness with palpation left lower quadrant NEUROLOGIC: Alert and oriented. Cranial nerves II through XII grossly intact. ASSESSMENT: 1. Uncomplicated Acute diverticulitis at the descending sigmoid colon junction 2. History of diverticulitis 3. Melanotic stools resolved PLAN: -Advance diet to full liquids -Continue antibiotics -Continue IV fluids -Encourage patient increase activity level Physician Lawnmower Repair Mechanic note has been reviewed by physician. Signing provider agrees with the documented findings, assessment, and plan of care. I have personally seen and examined the patient, reviewed the PROCESS IMPROVEMENT SPECIALIST /PAs history, exam and MDM and agree with the assessment and plan as written. Based on total visit time, I have performed more than 50% of the visit. As above: Yesterday when I saw the patient I had looked at his CAT scan and it appeared there was a anastomotic ring from a prior colon resection. Patient mentioned during our conversation that Dr. Serrano did his diverticulitis surgery previously. After talking to the patient today it turns out that Dr. Preciado only took care of his diverticulitis conservatively and that he has not had previous colon surgery. Films were reviewed again and the area that looked like an anastomotic ring was calcifications within a few of the diverticulum in the distal sigmoid colon. Last colonoscopy 2019. Patient had mild nonspecific left-sided colitis at the time. Once again there is mild colonic wall thickening involving the descending and sigmoid colon currently. Patient does feel better today. No rectal bleeding or melena. Lactic acid remains slightly elevated. Patient states he has been having increasing diarrhea over the last several months. Sometimes has fecal incontinence. Will require upper and lower endoscopy but would favor performing this as outpatient after finishing a second course of antibiotics for possible diverticulitis or colitis. Continue advancing diet. Will follow. Objective - Vital Signs Vital signs: Vital Signs Temp 98.0 F 01/06/25 07:25 Pulse 65 01/06/25 08:00 Resp 18 01/06/25 08:00 BP 136/81 01/06/25 07:25 Pulse Ox 97 01/06/25 07:25 FiO2 Intake & Output 01/05/25 01/06/25 01/06/25 18:59 06:59 18:59 Intake Total 500 Balance 500 Weight 92.986 kg Intake: Oral 500 Other: Voiding Method Toilet Toilet # Voids 1 - Labs CBC & Chem 7: 01/06/25 02:04 01/06/25 07:04 Labs: Abnormal Lab Results - Last 24 Hours (Table) 01/05/25 01/05/25 01/05/25 Range/Units 11:15 11:15 11:15 RBC (4.30-5.90) m/uL MCV 102.2 H (80.0-100.0) fL Carbon Dioxide 20 L (22-30) mmol/L Glucose 112 H (74-99) mg/dL Plasma Lactic Acid Elijah 3.9 H* (0.7-2.0) mmol/L Total Protein (6.3-8.2) g/dL 01/05/25 01/05/25 01/05/25 Range/Units 14:30 17:51 22:09 RBC (4.30-5.90) m/uL MCV (80.0-100.0) fL Carbon Dioxide (22-30) mmol/L Glucose (74-99) mg/dL Plasma Lactic Acid Elijah 3.9 H* 3.6 H* 3.5 H* (0.7-2.0) mmol/L Total Protein (6.3-8.2) g/dL 01/06/25 01/06/25 01/06/25 Range/Units 02:04 02:04 02:04 RBC 3.99 L (4.30-5.90) m/uL MCV 103.1 H (80.0-100.0) fL Carbon Dioxide (22-30) mmol/L Glucose (74-99) mg/dL Plasma Lactic Acid Elijah 2.9 H* (0.7-2.0) mmol/L Total Protein 6.1 L (6.3-8.2) g/dL 01/06/25 01/06/25 01/06/25 Range/Units 05:25 07:04 08:12 RBC (4.30-5.90) m/uL MCV (80.0-100.0) fL Carbon Dioxide (22-30) mmol/L Glucose (74-99) mg/dL Plasma Lactic Acid Elijah 2.7 H* 4.1 H* (0.7-2.0) mmol/L Total Protein 6.1 L (6.3-8.2) g/dL
[2025-01-06] MEDS: PANTOPRAZOLE 40 MG/10 ML VIAL IVP SCH (11:27)
[2025-01-06] MEDS: ACETAMINOPHEN TAB 325 MG TAB PO PRN (19:48)
[2025-01-07 04:07] LABS: Basophils % (A) 0 %; Eosinophils # (A) 0.1 k/uL (0-0.7); Eosinophils % (A) 3 %; HCT 38.9 % (39.0-53.0); Lymphocytes # (A) 1.7 k/uL (1.0-4.8); Lymphocytes % (A) 38 %; MCH 33.8 pg (25.0-35.0); MCHC 33.3 g/dL (31.0-37.0); MCV 101.6 fL (80.0-100.0); Macrocytosis Slight; Monocytes # (A) 0.4 k/uL (0-1.0); Monocytes % (A) 8 %; Neutrophils # (A) 2.2 k/uL (1.3-7.7); Neutrophils % (A) 49 %; Platelet Count 150 k/uL (150-450); RBC 3.83 m/uL (4.30-5.90); RDW 13.8 % (11.5-15.5); WBC 4.4 k/uL (3.8-10.6)
[2025-01-07 04:22] LABS: African American GFR (CKD) 83 (>60 ml/min/1.73 sqM); Anion Gap 7 mmol/L; Blood Urea Nitrogen 9 mg/dL (9-20); Calcium 8.4 mg/dL (8.4-10.2); Carbon Dioxide 23 mmol/L (22-30); Chloride 107 mmol/L (98-107); Glucose 95 mg/dL (74-99); Non-African American GFR(CKD) 72 (>60 ml/min/1.73 sqM); Potassium 3.6 mmol/L (3.5-5.1); Sodium 137 mmol/L (137-145)
--- NOTE | 2025-01-07 05:47 | P.PN ---
Subjective Progress Note Date: 01/06/25 HISTORY OF PRESENT ILLNESS: This is a 69-year-old male with a previous medical history significant for hypertension and hypertensive cardiovascular disease, history of coronary artery disease, mitral regurgitation, history of mixed hyperlipidemia, history of vitamin D deficiency, history of diverticulosis, apparently the patient has been suffering from significant issues with on and off left lower quadrant abdominal pain associated with recurrent diarrhea and increased abdominal cramping not able to go to the bathroom, initially he was seen on November 12, 2024 when he was treated with oral antibiotic due to suspected left-sided sigmoid diverticulitis, he was feeling a bit better after a while, he came to the office again on December 21, 2024 with increased abdominal pain associated wi th increased cramps at that time he was sent for a CT scan of the abdomen pelvis that did not show evidence of acute diverticulitis this did show evidence of diverticulosis, he was treated with oral antibiotic at the same time, and the patient had stool study that was negative for acute abnormalities including C. difficile toxins as well as an ova and parasite, WBC in the stool, he was positive for lactoferrin, patient decided to come to the peds department yesterday because of increased abdominal pain left lower quadrant associated with diarrhea as well as intractable cramps, he was having this shaking chills as well, he had a CT scan of the abdomen pelvis in the emergency department that showed evidence of uncomplicated left-sided diverticulitis he was started on IV antibiotic in the form of Zosyn 3.375 g piggyback every 8 hours, he was admitted to the hospital he was started on IV pain management as well, surgical consultation was obtained from Dr. Wellington 01/06: Patient is doing better today, he denies any chest pain, shortness of breath, his abdominal pain is better, continue pain IV antibiotic, he was seen earlier by general surgery, will continue to follow-up with the patient very closely, patient is currently on full liquid diet, continue to hold Eliquis for now. REVIEW OF SYSTEMS: Constitutional: No documented fever, no chills, no night sweats. No weight change. No weakness, fatigue or lethargy. No daytime sleepiness. EENT: No headache. No blurred vision or double vision, no loss of vision. No loss of Hearing, no ringing in the ears, no dizziness. No nasal drainage or congestion. No epistaxis. No sore throat. Lungs: No shortness of breath, no cough, no sputum production. No wheezing. Reports dyspnea with activity. Cardiovascular: No chest pain, no lower extremity edema. No palpitations. No paroxysmal nocturnal dyspnea. No orthopnea. No lightheadedness or dizziness. No syncopal episodes. Abdominal: Reports abdominal pain. No nausea, vomiting. positive for diarrhea. No constipation. No bloody but positive for melanotic stools reports loss of appetite. Genitourinary: No dysuria, increased frequency, urgency. No urinary retention. Musculoskeletal: No myalgias. No muscle weakness, no gait dysfunction, no frequent falls. No back pain. No neck pain. Integumentary: No wounds, no lesions. No rash or pruritus. No unusual bruising. No change in hair or nails. Neurologic: No aphasia. No facial droop. No change in mentation. No head injury. No headache. No paralysis. No paresthesia. Psychiatric: No depression. positive for anxiety. No mood swings. Endocrine: No abnormal blood sugars. No weight change. PHYSICAL EXAMINATION: General: 69-year-old male laying down in bed in minimal distress. HEENT: Head is atraumatic, normocephalic, pupils were equal round reactive to light and recommendation, extraocular muscle movement were intact, sclera nonicteric, conjunctivae were pale, mucous membranes of the mouth are somewhat dry. Neck: Supple, no JVP, normal carotid upstroke bilaterally, no lymphadenopathy. Chest: Decreased breath sounds at the bases, few rhonchi, no expiratory wheezes, no chest wall tenderness, no intercostal retractions. Heart: First heart sound is normal, second heart sounds normal there is systolic ejection murmur 2 over systolic in the left sternal border. Abdomen: Soft, mild tenderness to the left lower quadrant, no rebound or guarding positive bowel sounds. Extremities: There is no edema no calf tenderness DP +2 bilaterally. Neurologic examination: Patient is awake alert and oriented x3, cranial nerves II-12 appear grossly intact, muscle power were 5 out of 5 in upper extremities and 5 out of 5 in bilateral lower extremities, deep tendon reflexes normal bilaterally. ASSESSMENT AND PLAN: 1. Acute sigmoid diverticulitis that has been recurrent since November 12, 2024. Patient was admitted to hospital started on IV antibiotic in the form of Zosyn 3.375 g IV every 4 hours, continue pain management as outlined, continue postop care, diet, general surgery consultation was obtained. Follow-up with the patient very closely. 2. Hypertension and hypertensive cardiovascular disease. continue patient on valsartan 160 mg at bedtime, monitor the patient blood pressure very closely. 3. Mixed hyperlipidemia. Patient is not taking any statin at this point in time. He may need to be started on PCSK9 inhibitor. 4. Coronary artery disease follows with Dr. Gallo on a regular basis. Stable at this time. 5. Paroxysmal atrial fibrillation. Patient was taken off Eliquis and kept on nothing per mouth overnight surgery recommendation. 6. Anxiety disorder. Continue patient on Xanax as needed. Continue patient on sertraline 50 mg orally once every day. 7. DVT prophylaxis. Patient will was taken off Eliquis last night we will monitor very closely. 8. GI prophylaxis. Continue patient on Protonix. Objective - Vital Signs Vital signs: Vital Signs Temp 98.0 F 01/06/25 07:25 Pulse 65 01/06/25 08:00 Resp 18 01/06/25 08:00 BP 136/81 01/06/25 07:25 Pulse Ox 97 01/06/25 07:25 FiO2 Intake & Output 01/05/25 01/06/25 01/06/25 18:59 06:59 18:59 Intake Total 500 Balance 500 Weight 92.986 kg Intake: Oral 500 Other: Voiding Method Toilet Toilet # Voids 1 - Labs CBC & Chem 7: 01/06/25 02:04 01/06/25 07:04 Labs: Abnormal Lab Results - Last 24 Hours (Table) 01/05/25 01/05/25 01/05/25 Range/Units 14:30 17:51 22:09 RBC (4.30-5.90) m/uL MCV (80.0-100.0) fL Plasma Lactic Acid Elijah 3.9 H* 3.6 H* 3.5 H* (0.7-2.0) mmol/L Total Protein (6.3-8.2) g/dL 01/06/25 01/06/25 01/06/25 Range/Units 02:04 02:04 02:04 RBC 3.99 L (4.30-5.90) m/uL MCV 103.1 H (80.0-100.0) fL Plasma Lactic Acid Elijah 2.9 H* (0.7-2.0) mmol/L Total Protein 6.1 L (6.3-8.2) g/dL 01/06/25 01/06/25 01/06/25 Range/Units 05:25 07:04 08:12 RBC (4.30-5.90) m/uL MCV (80.0-100.0) fL Plasma Lactic Acid Elijah 2.7 H* 4.1 H* (0.7-2.0) mmol/L Total Protein 6.1 L (6.3-8.2) g/dL 01/06/25 Range/Units 10:56 RBC (4.30-5.90) m/uL MCV (80.0-100.0) fL Plasma Lactic Acid Elijah 2.3 H* (0.7-2.0) mmol/L Total Protein (6.3-8.2) g/dL
[2025-01-07 07:45] VITALS: BP 156/80; PULSE 60; RESP 15; TEMP 97.5
--- NOTE | 2025-01-07 11:58 | P.PN ---
Subjective Progress Note Date: 01/07/25 SURGICAL PROGRESS NOTE CHIEF COMPLAINT: Diverticulitis HISTORY OF PRESENT ILLNESS: Patient continues to feel better. Patient reports abdominal pain has resolved. He is having loose bowel movements. Denies any nausea or vomiting. He tolerated the full liquids. Afebrile. Afebrile. WBC 4.4 lactic acid normalized at 1.9 PHYSICAL EXAM: VITAL SIGNS: Reviewed. GENERAL: Well-developed in no acute distress. ABDOMEN: Soft. Nondistended. Nontender NEUROLOGIC: Alert and oriented. Cranial nerves II through XII grossly intact. ASSESSMENT: 1. Uncomplicated Acute diverticulitis at the descending sigmoid colon junction improved 2. History of diverticulitis 3. Melanotic stools resolved PLAN: -Patient can be discharged from surgical standpoint -Advance diet to low fiber -Discharge antibiotics per medicine service -Recommend EGD and colonoscopy outpatient in 4 to 6 weeks Physician Rodbuster note has been reviewed by physician. Signing provider agrees with the documented findings, assessment, and plan of care. I have personally seen and examined the patient, reviewed the BLEACH BOILER PULLER /PAs history, exam and MDM and agree with the assessment and plan as written. Based on total visit time, I have performed more than 50% of the visit. As above: Patient feels better today. Still having some loose stools but back to baseline. Previous colonoscopy report showing left-sided colitis. Suspect exacerbation of colitis. Continue diet as tolerated. Continue antibiotics. May discharge. Will plan short-term upper and lower endoscopy. Objective - Vital Signs Vital signs: Vital Signs Temp 97.5 F L 01/07/25 07:11 Pulse 60 01/07/25 07:11 Resp 15 01/07/25 07:11 BP 156/80 01/07/25 07:11 Pulse Ox 98 01/07/25 07:11 FiO2 Intake & Output 01/06/25 01/07/25 01/07/25 18:59 06:59 18:59 Intake Total 1440 Balance 1440 Intake: Oral 1440 Other: Voiding Method Toilet Toilet # Voids 4 1 # Bowel Movements 2 - Labs CBC & Chem 7: 01/07/25 03:40 01/07/25 03:40 Labs: Abnormal Lab Results - Last 24 Hours (Table) 01/06/25 01/06/25 01/06/25 Range/Units 10:56 14:02 17:34 RBC (4.30-5.90) m/uL Hct (39.0-53.0) % MCV (80.0-100.0) fL Plasma Lactic Acid Elijah 2.3 H* 3.4 H* 3.1 H* (0.7-2.0) mmol/L 01/07/25 Range/Units 03:40 RBC 3.83 L (4.30-5.90) m/uL Hct 38.9 L (39.0-53.0) % MCV 101.6 H (80.0-100.0) fL Plasma Lactic Acid Elijah (0.7-2.0) mmol/L Microbiology - Last 24 Hours (Table) 01/05/25 16:10 Blood Culture - Preliminary Blood
--- NOTE | 2025-01-08 05:24 | P.DS ---
Providers Date of admission: 01/05/25 13:38 Expected date of discharge: 01/07/25 Attending physician: Larissa Harry Consults: 01/05/25 13:30 Consult Physician Urgent Consulting Provider: Rhett Wellington Consult Reason/Comments: Diverticulitis Do you want consulting provider notified?: Yes Primary care physician: Larissa Harry Hospital Course: HISTORY OF PRESENT ILLNESS: This is a 69-year-old male with a previous medical history significant for hypertension and hypertensive cardiovascular disease, history of coronary artery disease, mitral regurgitation, history of mixed hyperlipidemia, history of vitamin D deficiency, history of diverticulosis, apparently the patient has been suffering from significant issues with on and off left lower quadrant abdominal pain associated with recurrent diarrhea and increased abdominal cramping not able to go to the bathroom, initially he was seen on November 12, 2024 when he was treated with oral antibiotic due to suspected left-sided sigmoid diverticulitis, he was feeling a bit better after a while, he came to the office again on December 21, 2024 with increased abdominal pain associated with increased cramps at that time he was sent for a CT scan of the abdomen pelvis that did not show evidence of acute diverticulitis this did show evidence of diverticulosis, he was treated with oral antibiotic at the same time, and the patient had stool study that was negative for acute abnormalities including C. difficile toxins as well as an ova and parasite, WBC in the stool, he was positive for lactoferrin, patient decided to come to the peds department yesterday because of increased abdominal pain left lower quadrant associated with diarrhea as well as intractable cramps, he was having this shaking chills as well, he had a CT scan of the abdomen pelvis in the emergency department that showed evidence of uncomplicated left-sided diverticulitis he was started on IV antibiotic in the form of Zosyn 3.375 g piggyback every 8 hours, he was admitted to the hospital he was started on IV pain management as well, surgical consultation was obtained from Dr. Wellington 01/06: Patient is doing better today, he denies any chest pain, shortness of breath, his abdominal pain is better, continue pain IV antibiotic, he was seen earlier by general surgery, will continue to follow-up with the patient very closely, patient is currently on full liquid diet, continue to hold Eliquis for now. Discharge diagnoses: 1. Acute sigmoid diverticulitis that has been recurrent since November 12, 2024. 2. Hypertension and hypertensive cardiovascular disease. 3. Mixed hyperlipidemia. 4. Coronary artery disease 5. Paroxysmal atrial fibrillation. 6. Anxiety disorder. Patient Condition at Discharge: Fair Plan - Discharge Summary Discharge Rx Participant: No New Discharge Prescriptions: No Action Sertraline [Zoloft] 50 mg PO HS Apixaban [Eliquis] 5 mg PO BID Valsartan 160 mg PO HS ALPRAZolam [Xanax] 0.5 mg PO BID PRN PRN Reason: Anxiety Discharge Medication List Valsartan 160 mg PO HS 01/21/22 [History] Apixaban [Eliquis] 5 mg PO BID 01/12/24 [History] Sertraline [Zoloft] 50 mg PO HS 01/12/24 [History] ALPRAZolam [Xanax] 0.5 mg PO BID PRN 01/05/25 [History] Follow up Appointment(s)/Referral(s): Larissa Harry MD [Primary Care Provider] - 1-2 days
== END 2025-01-07 13:23 | disposition home or self-care (01) ==
LOC: EC 10:59 → 1SOBS 13:38
PROVIDERS: ADMIT Internal Medicine; ATTEND Internal Medicine
DX: K57.32 Diverticulitis of large intestine without perforation or abscess without bleeding (principal); K92.1 Melena; K21.9 Gastro-esophageal reflux disease without esophagitis; I11.9 Hypertensive heart disease without heart failure; E78.2 Mixed hyperlipidemia; I25.10 Atherosclerotic heart disease of native coronary artery without angina pectoris; I48.0 Paroxysmal atrial fibrillation; F41.9 Anxiety disorder, unspecified; E55.9 Vitamin D deficiency, unspecified; I34.0 Nonrheumatic mitral (valve) insufficiency; Z79.01 Long term (current) use of anticoagulants; Z79.82 Long term (current) use of aspirin; Z87.891 Personal history of nicotine dependence; Z79.899 Other long term (current) drug therapy; Z88.1 Allergy status to other antibiotic agents
CPT/HCPCS: 96366 ×4; 96375; 96376; 96361; 96365; 99285; 36415; 80053 ×2; 80048; 85652; 83605 ×2; 85025 ×3; 87040; 74177; G0378 ×3; J2543 ×3; Q9967; J2470 ×2

== ENCOUNTER → 2025-02-02 | Outpatient (CLI) | payer MEDICARE ==
--- NOTE | 2025-02-02 18:51 | XR ---
EXAMINATION TYPE: XR abdomen 2V DATE OF EXAM: 02/02/2025 6:09 PM COMPARISON: CT abdomen/pelvis 01/05/2025 CLINICAL INDICATION: Male, 69 years old with history of K57.92 DVTRCLI OF INTEST, PART UNSP, W/O PERF OR A; PHH, pain TECHNIQUE: Two views of the abdomen were obtained. FINDINGS: The bowel gas pattern is nonspecific without dilated loops of small or large bowel. There i s no evidence for organomegaly or pneumoperitoneum. The osseous structures are intact. Multilevel benji mbosacral spine degenerative changes. Previous cholecystectomy noted. No abnormal calcifications are present. Fecal material and gas are demonstrated throughout the colon and rectum. IMPRESSION: Nonspecific bowel gas pattern without radiographic evidence for acute process. [facility], , 02/02/2025 6:48 PM
== END | disposition home or self-care (01) ==
LOC: RADXRMAIN 17:42
PROVIDERS: ATTEND Internal Medicine
DX: K57.92 Diverticulitis of intestine, part unspecified, without perforation or abscess without bleeding (principal)
CPT/HCPCS: 74019

== ENCOUNTER 2025-02-08 06:48 | Day surgery (SDC) | payer MEDICARE ==
[2025-02-08 07:27] VITALS: TEMP 97.5
[2025-02-08] MEDS: LACTATED RINGERS 1,000 ML IV SCH (07:33)
[2025-02-08] MEDS: IV FLUID CONTINUATION 1,000 ML IV ONE (07:35)
[2025-02-08] MEDS ORDERED: LIDOCAINE 1% INJ 10MG/ML (20 ML MDV) ONE (08:07)
[2025-02-08] MEDS ORDERED: PROPOFOL 10 MG/ML 20 ML VIAL IV ONE (08:07)
--- NOTE | 2025-02-08 08:10 | P.HPADDEND ---
H&P Addendum H&P Addendum Date: 02/08/25 Patient here today for upper and lower endoscopy. Upper endoscopy being performed for epigastric pain. Was started on antibiotics recently for what was thought to possibly be recurrent colitis or diverticulitis per patient.
--- NOTE | 2025-02-08 08:34 | P.PCN ---
Date of Procedure: 02/08/25 Procedure(s) Performed: PREOPERATIVE DIAGNOSIS: Epigastric pain, diverticulitis, GI bleed POSTOPERATIVE DIAGNOSIS: Gastritis, small hiatal hernia, mild distal esophagitis, left-sided colitis, diverticulosis PROCEDURE: 1. EGD with biopsy 2. Colonoscopy with biopsy [place]: [facility] [place]: Rhett Wellington M.D. SPECIMENS: Stomach, esophagus, colon ENDOSCOPIC PROCEDURE: The patient was on the endoscopy table in the left decubitus position. The Olympus gastroscope was inserted into the oropharynx and passed under direct visualization to the region of the third portion of the duodenum. From that point the scope was slowly withdrawn inspecting all surfaces carefully. There were no neoplastic inflammatory or polypoid lesions throughout the duodenum. The pylorus was widely patent. The stomach was carefully inspected. There was gastritis present. A biopsy of the antrum took place to rule out H. pylori. Retroflexion revealed a small sliding hiatal hernia measuring 1.5 cm. A single small linear erosion was present at the distal esophagus and this was biopsied. This measured less than 1 cm. The remainder of the esophagus appeared normal. The patient was kept on the endoscopy table in the left decubitus position. The Olympus colonoscope was inserted into the anus and passed under direct visualization to the base of the cecum. The appendiceal orifice was visualized. From that point the scope was slowly withdrawn inspecting all surfaces carefully. There were no neoplastic inflammatory or polypoid lesions throughout the cecum, ascending, or transverse colon. In the descending colon/sigmoid between 35 and 25 cm there was a section of colon that was edematous and mildly erythematous. A few small superficial erosions were noted measuring less than 3 or 4 mm. Biopsies were taken through this section. Multiple diverticular orifices were present as well. Unclear whether this represented focal colitis versus subacute diverticulitis. The remainder of the sigmoid and rectum appeared normal. No polypoid lesions were seen. Digital rectal examination was normal. The patient was taken to the recovery room in stable condition per anesthesia guidelines. RECOMMENDATIONS: Await biopsy results. Will call patient with biopsy findings. Begin antiacid therapy.
[2025-02-08 08:39] VITALS: RESP 16
[2025-02-08 09:24] VITALS: BP 171/88; PULSE 89
[2025-02-08] MEDS: ONDANSETRON 4 MG/2 ML VIAL IVP STA (09:50)
[2025-02-08] MEDS: SIMETHICONE 80 MG CHEWABLE PO STA (09:52)
[2025-02-08] MEDS: LACTATED RINGERS 1,000 ML IV ONE (10:01)
== END 2025-02-08 10:54 | disposition home or self-care (01) ==
LOC: ORWHC2ENDO 06:48
PROVIDERS: ATTEND Surgery
DX: K29.50 Unspecified chronic gastritis without bleeding (principal); K44.9 Diaphragmatic hernia without obstruction or gangrene; K21.00 Gastro-esophageal reflux disease with esophagitis, without bleeding; K51.50 Left sided colitis without complications; K57.33 Diverticulitis of large intestine without perforation or abscess with bleeding; I48.91 Unspecified atrial fibrillation; I10 Essential (primary) hypertension; E78.5 Hyperlipidemia, unspecified; F41.9 Anxiety disorder, unspecified; Z88.5 Allergy status to narcotic agent; Z79.899 Other long term (current) drug therapy
CPT/HCPCS: 88305; 45380; 43239; J2405; J2003; J2704

== ENCOUNTER → 2025-05-25 | Outpatient (CLI) | payer MEDICARE ==
--- NOTE | 2025-05-25 09:51 | XR ---
EXAMINATION TYPE: XR cervical spine w flex/ext DATE OF EXAM: 05/25/2025 9:45 AM INDICATION: Patient age:Male; 69 years old; Reason for study: M47.812 cervical spondylosis; PHH, pain COMPARISON: None TECHNIQUE: The cervical spine was imaged in frontal, lateral, flexion, extension, bilateral oblique, and odontoid projections. FINDINGS: The osseous structures show normal alignment without evidence of an acute fracture. Disc space narrow ing identified at C5-C6 C6-C7. Anterior osteophyte at C6-C7. Pedicles are intact. Soft tissues are w ithin normal limits. The odontoid appears intact. Atherosclerotic calcification of the aorta. The vis ualized upper lungs are clear. IMPRESSION: 1. No fracture or dislocation. 2. Mild degenerative disc disease changes of the cervical spine. [facility], , 05/25/2025 9:49 AM
== END | disposition home or self-care (01) ==
LOC: RADXRMAIN 09:11
PROVIDERS: ATTEND Internal Medicine
DX: M47.812 Spondylosis without myelopathy or radiculopathy, cervical region (principal); M50.30 Other cervical disc degeneration, unspecified cervical region
CPT/HCPCS: 72052

== ENCOUNTER → 2025-05-31 | Outpatient (CLI) | payer MEDICARE ==
--- NOTE | 2025-05-31 19:27 | CT ---
EXAMINATION TYPE: CT angio head neck CT DLP: 1439.5 mGycm, Automated exposure control for dose reduction was used. DATE OF EXAM: 05/31/2025 6:34 PM COMPARISON: CT brain 12/02/2011. CLINICAL INDICATION:Male, 69 years old with history of R55 SYNCOPE AND COLLAPSE; PHH, syncope TECHNIQUE: Axially acquired helical CT angiogram of the head and neck was obtained with contrast util izing 75 cc of Isovue-370 administered intravenously. Noncontrast imaging of the head is performed be fore the administration of contrast. Axial images are supplemented with 3D reconstructions which were post-processed at an independent workstation. NASCET criteria used. MIP imaging performed on a separate workstation and submitted for review. FINDINGS: Brain: Extra-axial spaces: No abnormal extra-axial fluid collections. Calcifications along the anterior falx . Ventricular system: Within normal limits Cerebral parenchyma: Age appropriate mild cerebral atrophy. No acute intraparenchymal hemorrhage or m ass effect. The sellers-white junction is well differentiated. Scattered hypoattenuating areas are seen within the periventricular white matter. Likely related to chronic small vessel ischemic disease. Cerebellum: Unremarkable. Mass effect: No evidence of midline shift. Soft tissues: Normal. Calvarium/osseous structures: No depressed skull fracture. Paranasal sinuses and mastoid air cells: Clear Visualized orbits: Orbital contents are intact. CTA HEAD: No evidence of acute intracranial hemorrhage, mass effect, or midline shift. The ventricles, sulci, a nd cisterns are unremarkable. The visualized portions of the internal carotid arteries, middle cerebral arteries, anterior cerebral arteries, and posterior cerebral arteries are patent. The basilar and vertebral arteries are patent. CTA NECK: Right Carotid System: Moderate calcified plaque at its origin of the common carotid artery. Mild calcified plaque at the or igin of the external carotid artery. The common carotid artery and external carotid artery are patent without significant stenosis. The carotid bifurcation demonstrates no evidence of hemodynamically si gnificant stenosis. The remaining portions of the internal carotid artery demonstrate normal size wit hout significant narrowing. Left Carotid System: The common carotid artery and external carotid artery are patent. Minimal calcified plaque at the car otid bifurcation. The carotid bifurcation demonstrates no evidence of hemodynamically significant nela nosis. The remaining portions of the internal carotid artery demonstrate normal size without signific ant narrowing. Vertebral arteries are patent without evidence hemodynamically significant stenosis. The vertebral ar teries are codominant. There is a three-vessel aortic arch. The origins of the great vessels are patent. No evidence of hemo dynamically significant stenosis. Mild multilevel degenerative disc disease. Multilevel facet arthropathy. IMPRESSION: 1. No evidence of dissection of the cervical internal carotid arteries or vertebral arteries or any e vidence of significant stenosis at the carotid bifurcations. 2. No evidence of high-grade stenosis or intracranial aneurysm. [facility], , 05/31/2025 7:24 PM
== END | disposition home or self-care (01) ==
LOC: RADCTMAIN 16:24
PROVIDERS: ATTEND Internal Medicine
DX: R55 Syncope and collapse (principal)
CPT/HCPCS: 70496; 70498; Q9967

== ENCOUNTER 2025-06-09 07:08 | Day surgery (SDC) | payer MEDICARE ==
[2025-06-07 08:54] VITALS: BMI 29.0
[2025-06-09] MEDS: SODIUM CHLORIDE 0.9% 1,000 ML IV SCH (07:42)
[2025-06-09 07:45] VITALS: RESP 16; TEMP 96.9
[2025-06-09] MEDS: IV FLUID CONTINUATION 1,000 ML IV ONE (07:48)
[2025-06-09 09:39] VITALS: BP 120/85; PULSE 72
--- NOTE | 2025-06-09 18:57 | P.EPPROC ---
- EP Procedure Note Electrophysiology Procedure Note: Diagnosis Recurrent syncope Twelve-lead EKG shows sinus rhythm normal [place] narrow QRS normal ST segments normal QT interval Tilt table test per protocol Baseline blood pressure 140/81 mmHg, baseline heart rate 62 beats minute Patient was tilted upright on maculas centigrays per protocol A 15 mm drop in blood pressure upon assuming upright position Subsequently his blood pressure remained between 111 235 mmHg systolic but without any symptoms No significant change in heart rate Impression Normal twelve-lead EKG Mild asymptomatic orthostasis noted at the onset of the study
== END 2025-06-09 09:36 | disposition home or self-care (01) ==
LOC: CATHEP 07:08
PROVIDERS: ATTEND Internal Medicine Clinical Cardiac Electrophysiology
DX: R55 Syncope and collapse (principal)
CPT/HCPCS: 93660